=== PATIENT | male | born 1965 | race Caucasian/White ===

== ENCOUNTER 2016-10-10 16:01 | Emergency (ER) | payer SELFPAY ==
[~2016-10-10] VITALS: Ht 172.7 cm; Wt 99.8 kg
[2016-10-10] MEDS ORDERED: ASPIRIN 81 MG CHEW (CHILDREN'S ASA) PO ONE (16:30)
--- NOTE | 2016-10-10 16:53 | ED Chest Pain ---
General Chief Complaint: Chest Wall/Rib Pain Stated Complaint: CHEST/BACK/L SIDE PAIN Nursing Triage Note: Stated yesterday started having left shoulder, chest and back pain. Hurts worse to take a deep breath or move should. unable to lie flat. Denies soa, nausea, sweating Nursing Sepsis Screen: No Definite Risk Source: patient Exam Limitations: no limitations History of Present Illness Time seen by provider: 16:35 Initial Comments 1-2 day history of progressively worsening pain in his left chest especially on taking deep inspiration. He has a mild cough with no production. No fevers chills travel outside the [place], rash or recent illness. He had a heart catheter back in 2005 and was found to be normal. In the past he was told he had pleuritic chest pain. He has not been sedentary and has no pain in his calves or legs. Patient has mild anxiety but no shortness of breath without exertion. Allergies and Home Medications Allergies Coded Allergies: No Known Drug Allergies (Unverified , 10/10/16) Review of Systems Constitutional: No chills, No diaphoresis, No fever Respiratory: Cough (dry), Denies Orthopnea, SOA With Exertion, Denies SOA at Rest Cardiovascular: Chest Pain (right chest), Denies Edema Gastrointestinal: Denies Abdomen Distended, Denies Abdominal Pain Genitourinary: Denies Burning, Denies Discharge Musculoskeletal: No back pain, No joint pain Skin: No pruritus, No rash Psychiatric/Neurological: Denies Headache, Denies Numbness Past Ehqfbic-Xefmjz-Nhvrpw Hx Patient Social History Alcohol Use: Rarely Uses Recreational Drug Use: No Smoking Status: Never a Smoker 2nd Hand Smoke Exposure: No Recent Foreign Travel: No Contact w/Someone Who Travel: No Recent Infectious Disease Expo: No Recent Hopitalizations: No Immunizations Up To Date Tetanus Booster (TDap): More than 5yrs Surgeries HX Surgeries: No Respiratory Hx Respiratory Disorders: No Cardiovascular Hx Cardiac Disorders: Yes (Heart cath 2005) Neurological Hx Neurological Disorders: No Reproductive System Hx Reproductive Disorders: No Genitourinary Hx Genitourinary Disorders: No Gastrointestinal Hx Gastrointestinal Disorders: No Musculoskeletal Hx Musculoskeletal Disorders: No Endocrine Hx Endocrine Disorders: No HEENT HX ENT Disorders: No Psychosocial Hx Psychiatric Problems: No Integumentary HX Skin/Integumentary Disorder: No Blood Transfusions Hx Blood Disorders: No Physical Exam Vital Signs Vital Sign - Last 12Hours 10/10/16 16:09 Temp 98.8 Pulse 78 Resp 18 B/P (MAP) 137/84 Pulse Ox 98 Capillary Refill : Less Than 3 Seconds General Appearance: No Apparent Distress, WD/WN, Anxious HEENT: PERRL/EOMI, Pharynx Normal Neck: Full Range of Motion, Non Tender, Supple Respiratory: Chest Non Tender, Lungs Clear, Normal Breath Sounds, No Accessory Muscle Use, No Respiratory Distress, Inspiration (causes pain) Cardiovascular: Regular Rate, Rhythm, No Edema, No Gallop, No JVD, Normal Peripheral Pulses Gastrointestinal: Normal Bowel Sounds, No Organomegaly, No Pulsatile Mass, Non Tender, Soft Extremity: Normal Capillary Refill, Normal Inspection, Non Tender, No Calf Tenderness Neurologic/Psychiatric: Alert, Oriented x3, No Motor/Sensory Deficits Skin: Normal Color, Warm/Dry Progress/Results/Core Measures Results/Orders Lab Results Laboratory Tests Test 10/10/16 16:22 Range/Units White Blood Count 9.4 4.3-11.0 10^3/uL Red Blood Count 4.83 4.35-5.85 10^6/uL Hemoglobin 14.4 13.3-17.7 G/DL Hematocrit 42 40-54 % Mean Corpuscular Volume 87 80-99 FL Mean Corpuscular Hemoglobin 30 25-34 PG Mean Corpuscular Hemoglobin Concent 34 32-36 G/DL Red Cell Distribution Width 14.1 10.0-14.5 % Platelet Count 232 130-400 10^3/uL Mean Platelet Volume 10.9 H 7.4-10.4 FL Neutrophils (%) (Auto) 59 42-75 % Lymphocytes (%) (Auto) 31 12-44 % Monocytes (%) (Auto) 7 0-12 % Eosinophils (%) (Auto) 3 0-10 % Basophils (%) (Auto) 0 0-10 % Neutrophils # (Auto) 5.5 1.8-7.8 X 10^3 Lymphocytes # (Auto) 2.9 1.0-4.0 X 10^3 Monocytes # (Auto) 0.7 0.0-1.0 X 10^3 Eosinophils # (Auto) 0.3 0.0-0.3 10^3/uL Basophils # (Auto) 0.0 0.0-0.1 10^3/uL Prothrombin Time 12.8 12.2-14.7 SEC INR Comment 1.0 0.8-1.4 Activated Partial Thromboplast Time 26 24-35 SEC Sodium Level 142 135-145 MMOL/L Potassium Level 4.0 3.6-5.0 MMOL/L Chloride Level 106 98-107 MMOL/L Carbon Dioxide Level 26 21-32 MMOL/L Anion Gap 10 5-14 MMOL/L Blood Urea Nitrogen 12 7-18 MG/DL Creatinine 0.84 0.60-1.30 MG/DL Estimat Glomerular Filtration Rate > 60 BUN/Creatinine Ratio 14 Glucose Level 128 H 70-105 MG/DL Calcium Level 9.2 8.5-10.1 MG/DL Magnesium Level 2.2 1.8-2.4 MG/DL Total Bilirubin 0.5 0.1-1.0 MG/DL Aspartate Amino Transf (AST/SGOT) 24 5-34 U/L Alanine Aminotransferase (ALT/SGPT) 51 0-55 U/L Alkaline Phosphatase 64 40-136 U/L Myoglobin 32.7 10.0-92.0 NG/ML Troponin I < 0.30 <0.30 NG/ML Total Protein 7.1 6.4-8.2 G/DL Albumin 4.2 3.2-4.5 G/DL My Orders Orders - JARAD SAENZ Aspirin Chewable Tablet (Baby Aspirin Ch (10/10/16 16:30) Cbc With Automated Diff (10/10/16 16:53) Magnesium (10/10/16 16:53) Chest 1 View, Ap/Pa Only (10/10/16 16:53) Cardiac Profile 1 (10/10/16 16:53) Comprehensive Metabolic Panel (10/10/16 16:53) Myoglobin Serum (10/10/16 16:53) Protime With Inr (10/10/16 16:53) Partial Thromboplastin Time (10/10/16 16:53) O2 (10/10/16 16:53) Monitor-Rhythm Ecg Trace Only (10/10/16 16:53) Lipid Panel (10/11/16 06:00) Saline Lock/Iv-Start (10/10/16 16:53) Ct Angio Chest W (10/10/16 16:59) Iohexol Injection (Omnipaque 350 Mg/Ml 1 (10/10/16 17:15) Ns (Ivpb) (Sodium Chloride 0.9% Ivpb Bag (10/10/16 17:15) Medications Given in ED Current Medications Medications Dose Ordered Sig/Zhanna Route Start Time Stop Time Status Last Admin Dose Admin Aspirin 324 mg ONCE ONCE PO 10/10/16 16:30 10/10/16 16:32 DC 10/10/16 16:25 324 MG Iohexol 150 ml ONCE ONCE IV 10/10/16 17:15 10/10/16 17:16 DC 10/10/16 17:43 125 ML Sodium Chloride 100 ml ONCE ONCE IV 10/10/16 17:15 10/10/16 17:16 DC 10/10/16 17:43 80 ML Vital Signs/I&O Vital Sign - Last 12Hours 10/10/16 16:09 Temp 98.8 Pulse 78 Resp 18 B/P (MAP) 137/84 Pulse Ox 98 Blood Pressure Mean: 101 Progress Note : Time: 19:06 Progress Note Patient present to the ER with pleuritic sounding chest pain nontender chest wall. He is having mild shortness of breath although his sats of been okay he does not smoke or sure a lot of other risk factors. He reports he does have GERD and acid reflux. He states he has been seen several times recently for this pain and is very anxious and worried about it. He is worried he may have a clot in his lungs. Although as well scores low the obtain CTA make sure that he did not have a triple A given his description of the pain early on as being tearing. Diagnostic Imaging Diagonstic Imaging: Xray Plain Films/CT/US/NM/MRI: chest Comments VIA [facility]. [place], [place] NAME: GABRIELA ARMENTA [facility] REC#: [id number] PT STATUS: REG ER : 1965 PHYSICIAN: JARAD SAENZ MD ADMIT DATE: 10/10/16/ER Draft Date of Exam:10/10/16 CHEST 1 VIEW, AP/PA ONLY INDICATION: Chest pain. COMPARISON: Comparison made with prior examination from 12/10/2006. FINDINGS: The heart size, mediastinal configuration, and pulmonary vascularity are within normal limits. There is no pleural effusion, pneumothorax, or pneumonia. The osseous structures are unremarkable. IMPRESSION: No acute cardiopulmonary abnormality. Dictated on workstation # [id number] Dict: 10/10/16 1806 Trans: 10/10/16 180 [id number] Interpreted by: LILLIE ADAMSON Electronically signed by: Reviewed: Reviewed by Me Departure Impression Impression: Primary Impression: Pleuritic chest pain Disposition: 01 HOME, SELF-CARE Condition: Stable Departure-Patient Inst. Decision time for Depature: 19:08 Referrals: CHADWICK CHICAS DO (PCP/Family) Primary Care Physician Patient Instructions: Pleuritic Chest Pain (DC) Add. Discharge Instructions: Your chest pain is pleuritic in nature meaning it is related to the linings of your lungs. You should have this worked up outpatient by your primary care physician. If you continue to have pain you may consider using NSAIDs such as ibuprofen or Motrin or Aleve. Plan to see your primary care physician in one to 2 weeks. If you have new or worsening symptoms return to the ER. All discharge instructions reviewed with patient and/or family. Voiced understanding. Copy Copies To 1: CHADWICK CHICAS TITUS J October 10, 2016 16:53
[2016-10-10 16:59] LABS: BASOPHILS % (AUTO) 0 % (0-10); EOSINOPHILS # (AUTO) 0.3 10^3/uL (0.0-0.3); EOSINOPHILS % (AUTO) 3 % (0-10); LYMPHOCYTES # (AUTO) 2.9 X 10^3 (1.0-4.0); LYMPHOCYTES % (AUTO) 31 % (12-44); MEAN CORPUSCULAR HEMOGLOBIN 30 PG (25-34); MEAN CORPUSCULAR HGB CONC 34 G/DL (32-36); MEAN CORPUSCULAR VOLUME 87 FL (80-99); MEAN PLATELET VOLUME 10.9 FL (7.4-10.4); MONOCYTES # (AUTO) 0.7 X 10^3 (0.0-1.0); MONOCYTES % (AUTO) 7 % (0-12); NEUTROPHILS # (AUTO) 5.5 X 10^3 (1.8-7.8); NEUTROPHILS % (AUTO) 59 % (42-75); PLATELET COUNT 232 10^3/uL (130-400); RED BLOOD COUNT 4.83 10^6/uL (4.35-5.85); RED CELL DISTRIBUTION WIDTH 14.1 % (10.0-14.5); WHITE BLOOD COUNT 9.4 10^3/uL (4.3-11.0)
[2016-10-10] MEDS ORDERED: IOHEXOL 350 MG/ML 150 ML (OMNIPAQUE 350) VIAL IV ONE (17:15)
[2016-10-10] MEDS ORDERED: NS 100 ML (IVPB) BAG IV ONE (17:15)
[2016-10-10 17:19] LABS: ALANINE AMINOTRANSFERASE 51 U/L (0-55); ALBUMIN 4.2 G/DL (3.2-4.5); ANION GAP 10 MMOL/L (5-14); ASPARTATE AMINO TRANSFERASE 24 U/L (5-34); BILIRUBIN,TOTAL 0.5 MG/DL (0.1-1.0); BLOOD UREA NITROGEN 12 MG/DL (7-18); BUN/CREATININE RATIO 14; CALCIUM 9.2 MG/DL (8.5-10.1); CARBON DIOXIDE 26 MMOL/L (21-32); CHLORIDE 106 MMOL/L (98-107); CREATININE SERUM 0.84 MG/DL (0.60-1.30); GFR ESTIMATED > 60; GLUCOSE 128 MG/DL (70-105); MAGNESIUM 2.2 MG/DL (1.8-2.4); SODIUM 142 MMOL/L (135-145); TOTAL PROTEIN 7.1 G/DL (6.4-8.2)
[2016-10-10 17:25] LABS: MYOGLOBIN SERUM 32.7 NG/ML (10.0-92.0)
[2016-10-10 17:29] LABS: PROTHROMBIN TIME PATIENT 12.8 SEC (12.2-14.7)
--- NOTE | 2016-10-10 18:09 | Diagnostic Imaging Report ---
INDICATION: Chest pain. COMPARISON: Comparison made with prior examination from 12/10/2006. FINDINGS: The heart size, mediastinal configuration, and pulmonary vascularity are within normal limits. There is no pleural effusion, pneumothorax, or pneumonia. The osseous structures are unremarkable. IMPRESSION: No acute cardiopulmonary abnormality. Dictated by: Dictated on workstation # [id number]
--- NOTE | 2016-10-10 18:28 | Diagnostic Imaging Report ---
PROCEDURE: CT angiography of the chest with contrast. TECHNIQUE: Multiple contiguous axial images were obtained through the chest after uneventful bolus administration of intravenous contrast. Reconstructed CTA MIP acquisitions were also performed. INDICATION: Left chest pain. FINDINGS: There is a tiny low-density lesion in the left lobe of the thyroid. There is a small hiatal hernia. Incidental note is made of a bovine branching pattern of the aortic arch. The heart size is normal. The thoracic aorta is normal in caliber and without evidence of dissection. There are no filling defects seen within the pulmonary arteries to suggest pulmonary embolism. There are no discrete pulmonary nodules, masses or infiltrates. There is minimal linear scarring in the right lung base. There is no pleural or pericardial fluid. There is no pneumothorax. There is no pathologically enlarged adenopathy in the chest. The visualized intra-abdominal structures are unremarkable. IMPRESSION: 1. No evidence of aortic dissection or pulmonary embolism. 2. Small hiatal hernia. 3. Minimal linear scarring in the right lung base. 4. No other acute abnormality in the chest. Dictated by: Dictated on workstation # [id number]
[2016-10-10 19:32] VITALS: BP 139/98
== END 2016-10-10 19:28 | disposition home or self-care (01) ==
LOC: EDUNIT# 16:01 → ER 16:04
DX: R07.1 Chest pain on breathing (principal); K21.9 Gastro-esophageal reflux disease without esophagitis
CPT/HCPCS: 36415; 71010; 71275; 80053; 83735; 83874; 84484; 85027; 85610; 85730

== ENCOUNTER 2017-05-31 13:00 | Emergency (ER) | payer SELFPAY ==
[~2017-05-31] VITALS: Ht 175.3 cm; Wt 113.4 kg
--- NOTE | 2017-05-31 13:45 | ED Upper Extremity ---
General Chief Complaint: Upper Extremity Stated Complaint: L ELBOW PAIN Nursing Triage Note: PT REPORTS L ELBOW SWELLING AND PAIN. HE DENIES ANY INJURY. Nursing Sepsis Screen: No Definite Risk Source: patient History of Present Illness Time seen by provider: 13:30 Initial Comments C/O LEFT ELBOW SWELLING AND MILD PAIN FOR A FEW WEEKS NO KNOWN INJURY PT STATES IT GOT BETTER, THEN TODAY STARTED SWELLING AGAIN AND STARTED HURTING A LITTLE AGAIN NO PARESTHESIAS OR MOTOR DEFICITS NO HISTORY OF SIMILAR PT IS RIGHT HANDED PCP: DR. CHICAS Allergies and Home Medications Allergies Coded Allergies: No Known Drug Allergies (Unverified , 10/10/16) Constitutional: no symptoms reported Musculoskeletal: see HPI Skin: no symptoms reported Psychiatric/Neurological: No Symptoms Reported Past Unmdjhv-Goguuj-Tqhqhn Hx Patient Social History Alcohol Use: Rarely Uses Recreational Drug Use: No Smoking Status: Never a Smoker 2nd Hand Smoke Exposure: No Recent Foreign Travel: No Contact w/Someone Who Travel: No Recent Infectious Disease Expo: No Recent Hopitalizations: No Immunizations Up To Date Tetanus Booster (TDap): More than 5yrs Seasonal Allergies Seasonal Allergies: No Surgeries History of Surgeries: Yes (CARDIAC CATH 2005--NO INTERVENTION) Respiratory History of Respiratory Disorde: No Cardiovascular History of Cardiac Disorders: Yes (CARDIAC CATH 2005-NO INTERVENTION) Neurological History of Neurological Disord: No Reproductive System Hx Reproductive Disorders: No Gastrointestinal History of Gastrointestinal Di: No Musculoskeletal History of Musculoskeletal Dis: No Endocrine History of Endocrine Disorders: No HEENT History of HEENT Disorders: No Cancer History of Cancer: No Psychosocial History of Psychiatric Problem: No Integumentary History of Skin or Integumenta: No Blood Transfusions History of Blood Disorders: No Physical Exam Vital Signs Vital Sign - Last 12Hours 05/31/17 13:07 Temp 97.3 Pulse 70 Resp 16 B/P (MAP) 138/74 (95) Pulse Ox 98 O2 Delivery Room Air Capillary Refill : Less Than 3 Seconds General Appearance: WD/WN, no apparent distress Shoulder: normal inspection Elbow/Forearm: normal ROM, Left (ELBOW--+ EFFUSION OVER OLECRANON. NO TENDERNESS. NO WARMTH OR ERYTHEMA. NO WOUNDS OR EXTERNAL EVIDENCE OF TRAUMA. 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 as tested, no motor/sensory deficits, alert, normal mood/affect, oriented x 3 Skin: normal color, warm/dry, No rash Additional Procedures : Progress LEFT ELBOW CLEANSED WITH CHLORHEXIDINE INJECTED WITH 1% LIDOCAINE PLAIN ASPIRATED 20 ML BLOODY FLUID FROM AREA PT TOLERATED WELL NO COMPLICATIONS Progress/Results/Core Measures Results/Orders Lab Results Laboratory Tests Test 05/31/17 14:40 Range/Units Body Fluid Source SYNOVIAL Body Fluid Color RED Body Fluid Appearance MKD BLDY Body Fluid WBC 250 /uL Body Fluid RBC 53864 /uL Body Fluid Polynuclear WBCs 4 % Body Fluid Mononuclear WBCs 10 % Body Fluid Lymphocytes 86 % Body Fluid Other Cells 0 % Body Fluid Crystals NOT SEEN My Orders Orders - LAMAR BENNETT DO Elbow, Left, 3 Views (05/31/17 13:34) Lidocaine 1% (Xylocaine 1%) (05/31/17 14:23) Body Fluid Cell Count (05/31/17 14:38) Crystals,Body Fluid (05/31/17 14:38) Body Fluid Culture (05/31/17 14:38) Medications Given in ED Current Medications Medications Dose Ordered Sig/Zhanna Route Start Time Stop Time Status Last Admin Dose Admin Lidocaine HCl 50 ml STK-MED ONCE .ROUTE 05/31/17 14:23 05/31/17 14:25 DC 05/31/17 14:30 50 ML Vital Signs/I&O Vital Sign - Last 12Hours 05/31/17 05/31/17 13:07 14:57 Temp 97.3 97.3 Pulse 70 70 Resp 16 16 B/P (MAP) 138/74 (95) Pulse Ox 98 98 O2 Delivery Room Air Blood Pressure Mean: 95 Diagnostic Imaging Comments XRAYS LEFT ELBOW--EFFUSION/ BURSITIS--PER RADIOLOGIST REPORT @ 1438 Departure Impression Impression: Primary Impression: Olecranon bursitis, left elbow Disposition: 01 HOME, SELF-CARE Condition: Stable Departure-Patient Inst. Referrals: CHADWICK CHICAS DO (PCP/Family) Primary Care Physician GEOVANY CA MD Patient Instructions: Olecranon Bursitis (DC) Add. Discharge Instructions: FOLLOW UP WITH DR. CA THIS WEEK FOR FURTHER CARE TYLENOL AND MOTRIN NEEDED FOR PAIN All discharge instructions reviewed with patient and/or family. Voiced understanding. LAMAR BENNETT DO May 31, 2017 13:45
[2017-05-31] MEDS ORDERED: LIDOCAINE 1% INJ 50 ML (XYLOCAINE) VIAL ONE (14:23)
--- NOTE | 2017-05-31 14:25 | Diagnostic Imaging Report ---
Two views of the left elbow. INDICATION: Left elbow pain. FINDINGS: No fracture, dislocation or radiopaque foreign body is seen. There is elevation of the elbow fat pads suggestive of an effusion. There is a soft tissue swelling along the olecranon bursa area. The ossification at the triceps insertion is seen. IMPRESSION: There is suggestion of an elbow effusion and distention of the olecranon bursa suggestive of bursitis. Dictated by: Dictated on workstation # [id number]
[2017-05-31 14:57] VITALS: BP 138/74
== END 2017-05-31 15:00 | disposition home or self-care (01) ==
LOC: EDUNIT# 13:00 → ER 13:02
DX: M70.22 Olecranon bursitis, left elbow (principal)
CPT/HCPCS: 73080; 87070; 87205; 89051; 89060

== ENCOUNTER 2020-11-17 09:34 | Outpatient (CLI) | payer SELFPAY ==
[~2020-11-17] VITALS: Ht 175.3 cm; Wt 123.6 kg
== END 2020-11-17 14:44 | disposition home or self-care (01) ==
LOC: PREOP 09:34
PROVIDERS: ATTEND Surgery
DX: Z01.818 Encounter for other preprocedural examination (principal)

== ENCOUNTER 2020-11-19 12:48 | Day surgery (SDC) | payer SELFPAY ==
[2020-11-19] VITALS (20 sets, daily range): BP systolic 108–147; BP diastolic 51–86
[~2020-11-19] VITALS: Ht 175.6 cm; Wt 123.6 kg
--- NOTE | 2020-11-19 13:04 | Conscious Sedation/ASA ---
Conscious Sedation Pre-Proced Time 13:00 ASA Score 2 For ASA 3 and 4: Consider anesthesia and medical clearance. Also, for patients with a history of failed moderate sedation consider anesthesia. Airway Lungs Heart ASA score ASA 1: a normal healthy patient ASA 2: a patient with a mild systemic disease (mid diabetes, controlled hypertension, obesity ASA 3: a patient with a severe systemic disease that limits activity (angina, COPD, prior Myocardial infarction) ASA 4: a patient with an incapacitating disease that is a constant threat to life (CHF, renal failure) ASA 5: a moribund patient not expected to survive 24 hrs. (ruptured aneurysm) ASA 6: a declared brain- patient whose organs are being harvested. For emergent operations, add the letter E after the classification Mallampati Classification Grade 2 Sedation Plan Analgesia, Amnesia, Plan communicated to team members, Discussed options with patient/fam, Discussed risks with patient/fam The patient is an appropriate candidate to undergo the planned procedure, sedation, and anesthesia. The patient immediately re-assessed prior to indication. OFELIA CACERES MD Nov 19, 2020 13:04
--- NOTE | 2020-11-19 13:05 | Progress Note-Pre Operative ---
Pre-Operative Progress Note H&P Reviewed The H&P was reviewed, patient examined and no changes noted. Date Seen by Provider: Nov 19, 2020 Time Seen by Provider: 13:00 Date H&P Reviewed: Nov 19, 2020 Time H&P Reviewed: 13:00 Pre-Operative Diagnosis: rectal bleeding OFELIA CACERES MD Nov 19, 2020 13:05
--- NOTE | 2020-11-19 13:06 | Discharge Inst-Surgical ---
D/C Lap Instructions-NICKI Follow Up Activity as tolerated High Fiber Diet 25g or more per day Avoid Alcohol, Caffeine, Spicy [place] and Acid foods. Drink 64 fluid oz or more of fluids per day. Symptoms to Report: Fever over 101 degree F, Nausea/Vomiting If any problems/questions: Contact your physician or go to Emergency Room OFELIA CACERES MD Nov 19, 2020 13:06
[2020-11-19] MEDS ORDERED: NS IV 500 ML 500 ML ONE (13:14)
[2020-11-19] MEDS ORDERED: ONDANSETRON 4 MG/2 ML (SDV) Z0FRAN IVP PRN (13:15)
[2020-11-19] MEDS ORDERED: morphine INJ 10 MG/ML 1ML (SYR OR VIAL) IVP PRN ×2 (13:15)
[2020-11-19] MEDS ORDERED: ACETAMINOPHEN 325 MG TABLET PO PRN (13:15)
[2020-11-19] MEDS ORDERED: MIDAZOLAM 5 MG/5 ML (VERSED) VIAL IV ONE (13:15)
[2020-11-19] MEDS ORDERED: fentaNYL INJ 100 MCG/2 ML AMP IVP ONE (13:15)
[2020-11-19] MEDS ORDERED: LIDOCAINE JELLY 2% 6 ML SYRINGE MM PRN (13:15)
[2020-11-19] MEDS: NS IV 500 ML 500 ML IV PRN ×2 (13:25→13:27)
[2020-11-19] MEDS ORDERED: MIDAZOLAM 5 MG/5 ML (VERSED) VIAL ONE (14:08)
[2020-11-19] MEDS ORDERED: fentaNYL INJ 100 MCG/2 ML AMP ONE (14:09)
[2020-11-19] MEDS ORDERED: ATROPINE INJ 0.4 MG/ML SDV ONE (14:59)
[2020-11-19] MEDS ORDERED: ATROPINE INJ 0.4 MG/ML SDV IV ONE (15:15)
--- NOTE | 2020-11-19 15:32 | Progress Note-Post Operative ---
Post-Operative Progess Note Surgeon (s)/Dry Cleaner Presser (s) Surgeon OFELIA CACERES MD Dry Cleaner Presser: none Pre-Operative Diagnosis rectal bleeding Post-Operative Diagnosis laege sessile polyp distal rectum, 5mm pedunculated olyp simod and descending. Procedure & Operative Findings Date of Procedure 11/19/20 Procedure Performed/Findings colonoscopy with bx, snare polypectomy x2, submucosal injection. Anesthesia Type cs Estimated Blood Loss Estimated blood loss (mL): minimal Specimens/Packing Specimens Removed rectal mass, sigmoid and descending colon polyp. OFELIA CACERES MD Nov 19, 2020 15:32
[2020-11-19] MEDS ORDERED: fentaNYL INJ 100 MCG/2 ML AMP IVP PRN (16:00)
[2020-11-19] MEDS ORDERED: MIDAZOLAM 5 MG/5 ML (VERSED) VIAL IVP PRN (16:00)
--- NOTE | 2020-11-19 20:39 | OPERATIVE REPORT ---
DATE OF SERVICE: 11/19/2020 ATTENDING PRIMARY CARE PHYSICIAN: Dr. Matt Mcqueen. PREOPERATIVE DIAGNOSIS: Rectal bleeding. POSTOPERATIVE DIAGNOSES: Large sessile polyp of the distal rectum, pedunculated polyp of the sigmoid colon and descending colon. PROCEDURE: Colonoscopy with biopsy, snare polypectomy x2, submucosal injection. SURGEON: Ofelia Caceres MD ANESTHESIA: Conscious sedation. ESTIMATED BLOOD LOSS: Minimal. FINDINGS: Large sessile polyp of the distal rectum, pedunculated polyp of the sigmoid colon and descending colon. DISPOSITION: The patient tolerated the procedure well. INDICATIONS: The patient is a 55-year-old male who was seen in the office for rectal bleeding. He states that the bleeding was significant and he was seen in the Emergency Department. He has not had a colonoscopy up to this point in his life. He does not report any major issues with diarrhea nor constipation as well as no red blood per rectum nor any dark tarry stools. He also does not report any recent inadvertent weight loss. He does not report any family history of colon cancer. DESCRIPTION OF PROCEDURE: The patient was brought to the endoscopy suite, laid in the left lateral decubitus position. After adequate IV pain and sedative medications and conscious sedation anesthesia, digital rectal examination was performed. There was a palpable mass of the distal rectum, which was flat, sessile and at least 2 cm in width. Prostate gland was palpable and appeared normal. The endoscope was then intubated to the anus where this large sessile polyp was identified. Multiple biopsies were taken with forceps and electrocautery with visualization of good hemostasis. We also proceeded with submucosal injection proximal and distal to the polyp. The endoscope was then advanced through the valves of Zepeda in the rectum. At the sigmoid colon, a pedunculated polyp approximately 5 mm in size was identified. This was excised at its base using snare and electrocautery and sent to pathology. The endoscope was then advanced to the descending colon where a similar sized polyp, which was pedunculated was identified and removed. The endoscope was then advanced through the remainder of the transverse, ascending colon to the cecum, which were normal. The endoscope was then slowly withdrawn while taking a second look and suctioning of residual air with no additional findings. The patient tolerated the procedure well. We will await the biopsy results; however, the distal rectal lesion is worrisome for harboring a malignancy. If this is the case, we will refer him to oncology for potential chemoradiation. Due to the location of the lesion for definitive surgical resection, he would need an abdominoperineal resection and for this, we would refer him to a colorectal specialist. Job ID: [id number] DocumentID: [id number] Dictated Date: 11/19/2020 15:22:27 Inlayer Date: 11/19/2020 20:38:23 Dictated By: OFELIA CACERES MD
== END 2020-11-19 16:15 | disposition home or self-care (01) ==
LOC: ENDO 12:48
PROVIDERS: ATTEND Surgery
DX: C18.7 Malignant neoplasm of sigmoid colon (principal); D12.8 Benign neoplasm of rectum
CPT/HCPCS: 88305; 88341; 88342

== ENCOUNTER → 2020-12-02 | Outpatient (CLI) | payer SELFPAY ==
--- NOTE | 2020-12-02 18:57 | Diagnostic Imaging Report ---
INDICATION: Malignant neoplasm of the sigmoid colon, initial staging. TECHNIQUE: Serum blood glucose level at the time of injection is 99 mg/dL. Patient was administered 11.9 mCi F-18 FDG intravenously in the left antecubital location and PET imaging was performed from the top of the skull to mid thighs. Noncontrast CT was also performed for attenuation correction and anatomic correlation. COMPARISON: No prior studies are available for comparison. FINDINGS: There is symmetric activity throughout the brain. Soft tissues of the neck are unremarkable. There is a lymph node which shows some mild uptake in the right axilla with SUV max of 4.1 cm, indeterminate. No definite mediastinal or hilar hypermetabolism is seen. No pulmonary parenchymal hypermetabolism is identified. There is physiologic activity in the GI and tracts. There does appear to be an intensely hypermetabolic mass near the rectosigmoid junction with an SUV max of 27. This most likely corresponds to patient's known sigmoid colon malignancy. No definite hypermetabolic pelvic lymph nodes are identified. No other abnormalities are seen. IMPRESSION: Hypermetabolic mass at the rectosigmoid junction, corresponding to patient's known malignancy. No other suspicious metabolic foci are seen apart from a mildly hypermetabolic lymph node in the right axilla, indeterminate. Dictated by: Dictated on workstation # [id number]
== END ==
LOC: RAD 10:30
PROVIDERS: ATTEND Internal Medicine Hematology & Oncology
DX: C18.7 Malignant neoplasm of sigmoid colon (principal); R59.0 Localized enlarged lymph nodes
CPT/HCPCS: 78815; A9552

== ENCOUNTER → 2020-12-10 | Outpatient (CLI) | payer SELFPAY ==
[~2020-12-10] MED LIST: GADOBUTROL 15 MMOL/15 ML (GADAVIST) VIAL IV ONE
--- NOTE | 2020-12-10 13:01 | Diagnostic Imaging Report ---
EXAMINATION: MRI pelvis with and without contrast. TECHNIQUE: Multiplanar, multisequence MRI of the pelvis was performed with and without contrast according to rectal staging protocol. HISTORY: Rectal tumor. FINDINGS: Overall image quality: Adequate Tumor location and morphology: Tumor location: Low rectum (0-5 cm) Distance of inferior border of tumor to anal verge: 4.5 cm Distance of inferior border of tumor to anorectal junction: 2.5 cm Craniocaudal length: 5.5 cm Circumferential location: 12:00 to 7:00 Morphology: Polypoid Mucinous: no T-category: T1-2 (Tumor confined to the submucosa or muscularis propria) Structures invaded: None Involvement of sphincter complex: no N-category: N1b (2-3 abnormal lymph nodes) Suspicious mesorectal lymph nodes and/or tumor deposits: yes Number of suspicious lymph nodes: Three Distance from tumor deposit to CRM: 5 mm Extramesorectal fascia lymph nodes: no Other findings: Bowel is normal in caliber. Bladder is normal. Prostate gland is mildly enlarged. No osseus lesions are seen. IMPRESSION: 1. Low rectal tumor stage T1/T2N1b. Dictated by: Dictated on workstation # [id number]
== END ==
LOC: RAD 10:15
PROVIDERS: ATTEND Internal Medicine Hematology & Oncology
DX: C20 Malignant neoplasm of rectum (principal)
CPT/HCPCS: 72197

== ENCOUNTER 2020-12-15 08:31 | Outpatient (RCR) | payer SELFPAY ==
[2020-11-28 14:06] LABS: BASOPHILS % (AUTO) 0 % (0-10); EOSINOPHILS # (AUTO) 0.4 10^3/uL (0.0-0.3); EOSINOPHILS % (AUTO) 4 % (0-10); HEMATOCRIT 44 % (40-54); HEMOGLOBIN 14.8 g/dL (13.3-17.7); LYMPHOCYTES # (AUTO) 2.6 10^3/uL (1.0-4.0); LYMPHOCYTES % (AUTO) 26 % (12-44); MEAN CORPUSCULAR HEMOGLOBIN 31 pg (25-34); MEAN CORPUSCULAR HGB CONC 34 g/dL (32-36); MEAN CORPUSCULAR VOLUME 90 fL (80-99); MEAN PLATELET VOLUME 10.1 fL (9.0-12.2); MONOCYTES # (AUTO) 0.7 10^3/uL (0.0-1.0); MONOCYTES % (AUTO) 7 % (0-12); NEUTROPHILS # (AUTO) 6.2 10^3/uL (1.8-7.8); NEUTROPHILS % (AUTO) 63 % (42-75); PLATELET COUNT 244 10^3/uL (130-400); WHITE BLOOD COUNT 9.9 10^3/uL (4.3-11.0)
[2020-11-28 14:27] LABS: ALANINE AMINOTRANSFERASE 60 U/L (0-55); ALBUMIN 4.1 GM/DL (3.2-4.5); ALKALINE PHOSPHATASE 62 U/L (40-136); BILIRUBIN,TOTAL 0.5 MG/DL (0.1-1.0); BUN/CREATININE RATIO 18; CALCIUM 9.2 MG/DL (8.5-10.1); CARBON DIOXIDE 28 MMOL/L (21-32); CHLORIDE 107 MMOL/L (98-107); CREATININE SERUM 0.84 MG/DL (0.60-1.30); GFR ESTIMATED > 60; GLUCOSE 122 MG/DL (70-105); POTASSIUM 4.3 MMOL/L (3.6-5.0); SODIUM 142 MMOL/L (135-145); TOTAL PROTEIN 7.1 GM/DL (6.4-8.2)
== END 2020-12-19 13:52 | disposition home or self-care (01) ==
LOC: ONC 08:31
PROVIDERS: ATTEND Internal Medicine Hematology & Oncology
DX: C18.7 Malignant neoplasm of sigmoid colon (principal)
CPT/HCPCS: 80053; 82378; 85025; G0463; 77290; 77300; 77301; 77334; 77338; 77470; 99204; 99213; 99214

== ENCOUNTER 2021-02-24 22:50 | Emergency (ER) | payer OTHER ==
[~2021-02-24] VITALS: Ht 175 cm; Wt 120.7 kg
[2021-02-24 23:10] LABS: BASOPHILS % (AUTO) 1 % (0-10); EOSINOPHILS # (AUTO) 0.4 10^3/uL (0.0-0.3); EOSINOPHILS % (AUTO) 8 % (0-10); HEMATOCRIT 36 % (40-54); HEMOGLOBIN 12.3 g/dL (13.3-17.7); LYMPHOCYTES # (AUTO) 0.6 10^3/uL (1.0-4.0); LYMPHOCYTES % (AUTO) 11 % (12-44); MEAN CORPUSCULAR HEMOGLOBIN 32 pg (25-34); MEAN CORPUSCULAR HGB CONC 34 g/dL (32-36); MEAN CORPUSCULAR VOLUME 95 fL (80-99); MEAN PLATELET VOLUME 9.3 fL (9.0-12.2); MONOCYTES # (AUTO) 0.6 10^3/uL (0.0-1.0); MONOCYTES % (AUTO) 11 % (0-12); NEUTROPHILS # (AUTO) 3.6 10^3/uL (1.8-7.8); NEUTROPHILS % (AUTO) 68 % (42-75); PLATELET COUNT 220 10^3/uL (130-400); WHITE BLOOD COUNT 5.3 10^3/uL (4.3-11.0)
--- NOTE | 2021-02-24 23:17 | ED GI ---
General Chief Complaint: Rect Problems Stated Complaint: BLOOD IN STOOL Source of Information: Patient Exam Limitations: No Limitations (BARBI CARDENAS STUDENT) History of Present Illness Date Seen by Provider: Feb 24, 2021 Time Seen by Provider: 23:00 Initial Comments Jonathan is a 55 yo M who presents to the ED with c/o hematochezia. He had a normal day and this evening he went to the restroom and noticed blood on the toilet paper. When he looked, the whole stool was filled with bright red blood. Pt has 1 prior event where he had blood in his stool. 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 Pt is seeing Dr. Hamilton weekly. Pt has undergone 6 weeks of chemotherapy and radiation, he is currently on a 6 week break and will go to [place], [place] in March to have an MRI and then surgery to remove the mass. Positive for hematochezia. Denies any current bleeding. Denies nausea, vomiting, diarrhea, constipation, melena and abdominal pain. Timing/Duration: 1-3 Hours Severity/Quality: Mild Location: Unknown (rectal) Radiation: No Radiation Activities at Onset: Rest Modifying Factors: Improves With Other (no modifying factors ) Associated Symptoms: Denies Symptoms (BARBI CARDENAS) Allergies and Home Medications Allergies Coded Allergies: No Known Drug Allergies (Unverified , 10/10/16) Patient Home Medication List Home Medication List Reviewed: Yes (REGINA CHAMBERS MD) No Active Prescriptions or Reported Meds Review of Systems Review of Systems Constitutional: No chills, No diaphoresis, No fever, No malaise, No weakness EENTM: No Blurred Vision, No Double Vision Respiratory: Denies Cough, Denies Shortness of Air Cardiovascular: Denies Chest Pain, Denies Lightheadedness, Denies Palpitations Gastrointestinal: Denies Abdominal Pain, Denies Constipated, Denies Diarrhea, Denies Nausea, Denies Vomiting; Other (Hematochezia) Genitourinary: No Symptoms Reported Musculoskeletal: no symptoms reported Skin: no symptoms reported Hematologic/Lymphatic: No Symptoms Reported (BARBI CARDENAS STUDENT) Past Szlsork-Cecjid-Jgpswy Hx Patient Social History Tobacco Use?: No Substance use?: No (BARBI CARDENAS) Immunizations Up To Date Tetanus Booster (TDap): More than 5yrs (BARBI CARDENAS MED STUDENT) Seasonal Allergies Seasonal Allergies: No (BARBI CARDENAS STUDENT) Past Medical History Surgeries: No Respiratory: No Cardiac: No Neurological: No Reproductive Disorders: No Genitourinary: No Gastrointestinal: No Musculoskeletal: No Endocrine: No HEENT: No 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 Hamilton in [place], [place] 02/24/21 Psychosocial: No Integumentary: No Blood Disorders: No (BARBI CARDENAS STUDENT) Family Medical History No Pertinent Family Hx (BARBI CARDENAS STUDENT) Physical Exam Vital Signs Vital Signs - First Documented 02/24/21 22:59 Temp 36.2 Pulse 78 Resp 20 B/P (MAP) 147/89 (108) Pulse Ox 95 O2 Delivery Room Air (REGINA CHAMBERS MD) Vital Signs Capillary Refill : (BARBI CARDENAS MED STUDENT) Height/Weight/BMI Height: 5'9.00" Weight: 250lbs. oz. 113.994063gf; 40.08 BMI Method:Stated General Appearance: no apparent distress, obese Neck: full range of motion; No lymphadenopathy (R), No lymphadenopathy (L) Respiratory: chest non-tender, lungs clear, normal breath sounds, no respi ratory distress Cardiovascular: regular rate, rhythm, no murmur Gastrointestinal: normal bowel sounds, non tender, soft; No guarding, No rebound Neurologic/Psychiatric: alert, normal mood/affect, oriented x 3 Skin: normal color, warm/dry ( ) (BARBI CARDENAS MED STUDENT) Progress/Results/Core Measures Results/Orders Lab Results Laboratory Tests Test 02/24/21 23:00 Range/Units White Blood Count 5.3 4.3-11.0 10^3/uL Red Blood Count 3.83 L 4.30-5.52 10^6/uL Hemoglobin 12.3 L 13.3-17.7 g/dL Hematocrit 36 L 40-54 % Mean Corpuscular Volume 95 80-99 fL Mean Corpuscular Hemoglobin 32 25-34 pg Mean Corpuscular Hemoglobin Concent 34 32-36 g/dL Red Cell Distribution Width 17.3 H 10.0-14.5 % Platelet Count 220 130-400 10^3/uL Mean Platelet Volume 9.3 9.0-12.2 fL Immature Granulocyte % (Auto) 1 % Neutrophils (%) (Auto) 68 42-75 % Lymphocytes (%) (Auto) 11 L 12-44 % Monocytes (%) (Auto) 11 0-12 % Eosinophils (%) (Auto) 8 0-10 % Basophils (%) (Auto) 1 0-10 % Neutrophils # (Auto) 3.6 1.8-7.8 10^3/uL Lymphocytes # (Auto) 0.6 L 1.0-4.0 10^3/uL Monocytes # (Auto) 0.6 0.0-1.0 10^3/uL Eosinophils # (Auto) 0.4 H 0.0-0.3 10^3/uL Basophils # (Auto) 0.0 0.0-0.1 10^3/uL Immature Granulocyte # (Auto) 0.0 0.0-0.1 10^3/uL Sodium Level 140 135-145 MMOL/L Potassium Level 3.9 3.6-5.0 MMOL/L Chloride Level 107 98-107 MMOL/L Carbon Dioxide Level 23 21-32 MMOL/L Anion Gap 10 5-14 MMOL/L Blood Urea Nitrogen 11 7-18 MG/DL Creatinine 0.79 0.60-1.30 MG/DL Estimat Glomerular Filtration Rate 102 BUN/Creatinine Ratio 14 Glucose Level 111 H 70-105 MG/DL Calcium Level 9.0 8.5-10.1 MG/DL Corrected Calcium 9.1 8.5-10.1 MG/DL Total Bilirubin 0.8 0.1-1.0 MG/DL Aspartate Amino Transf (AST/SGOT) 27 5-34 U/L Alanine Aminotransferase (ALT/SGPT) 49 0-55 U/L Alkaline Phosphatase 60 40-136 U/L Total Protein 6.6 6.4-8.2 GM/DL Albumin 3.9 3.2-4.5 GM/DL (REGINA CHAMBERS MD) My Orders Orders - REGINA CHAMBERS MD Ed Iv/Invasive Line Start (02/24/21 23:00) Cbc With Automated Diff (02/24/21 23:00) Comprehensive Metabolic Panel (02/24/21 23:00) (REGINA CHAMBERS MD) Vital Signs/I&O 02/24/21 02/25/21 22:59 01:52 Temp 36.2 36.0 Pulse 78 62 Resp 20 18 B/P (MAP) 147/89 (108) 134/82 Pulse Ox 95 97 O2 Delivery Room Air Room Air (REGINA CHAMBERS MD) Departure Impression Primary Impression: Hematochezia Additional Impression: Rectal mass Disposition: HOME, SELF-CARE Condition: Improved Departure-Patient Inst. Decision time for Depature: 01:36 (REGINA CHAMBERS MD) Referrals: CHADWICK CHICAS DO (PCP/Family) Primary Care Physician Patient Instructions: Bloody Stools, Adult ED Add. Discharge Instructions: Observe a clear liquid diet for the next 24 hours to allow your bowels to rest. Expect some amount of blood in your stools for the next couple of the bowel movements as blood clears the colon. Return to the emergency room if you have further severe bleeding or if you develop secondary signs of anemia such as racing heart, shortness of breath, lightheadedness, weakness, etc. Call the Cancer Center in the morning for further instructions. You may call the ER with any other questions or concerns while the cancer center is not open. Avoid medications that can increase bleeding such as aspirin, ibuprofen, naproxen, or other NSAIDs. Return to the ER if you have any other worsening condition or concerns. All discharge instructions reviewed with patient and/or family. Voiced understanding. Scripts No Active Prescriptions or Reported Meds Medical Student Attestation and Attending Note: I have personally interviewed and examined this patient along with Barbi Cardenas, MS4. I have reviewed student documentation including history, physical, and assessments. I agree with the documentation except where otherwise noted. Exam: General: Alert, oriented, no acute distress, well developed HEENT: Normocephalic and atraumatic Heart: Regular rate and rhythm without murmur Lungs: Clear to auscultation bilaterally with normal effort Abdomen: Soft, nontender, nondistended, normal bowel sounds Rectal: Faint erythematous blood dried around the anus. No fissures or hemorrhoids apparent. Digital rectal exam was deferred since patient has had colonoscopy within the last couple of months. Neuropsych: Alert, oriented, no focal deficits Skin: Warm and dry without rashes Patient had no active bleeding during his ER stay. A 1 g drop in hemoglobin was noted from February 23 to February 24. Vital signs were normal. Patient is agreeable to discharge with close observation at home. (REGINA CHAMBERS MD) Copy Copies To 1: IESHA HERNANDEZ Copies To 2: CHADWICK CHICAS KATHRYN MED STUDENT Feb 24, 2021 23:17 REGINA CHAMBERS MD Feb 25, 2021 01:39
[2021-02-24 23:25] LABS: ALBUMIN 3.9 GM/DL (3.2-4.5)
[2021-02-24 23:26] LABS: POTASSIUM 3.9 MMOL/L (3.6-5.0)
[2021-02-24 23:28] LABS: TOTAL PROTEIN 6.6 GM/DL (6.4-8.2)
[2021-02-24 23:30] LABS: BILIRUBIN,TOTAL 0.8 MG/DL (0.1-1.0)
[2021-02-24 23:32] LABS: CREATININE SERUM 0.79 MG/DL (0.60-1.30)
[2021-02-25 01:52] VITALS: BP 134/82
== END 2021-02-25 01:54 | disposition home or self-care (01) ==
LOC: EDUNIT# 22:50 → ER 22:52
DX: D37.5 Neoplasm of uncertain behavior of rectum (principal); E66.9 Obesity, unspecified; Z68.41 Body mass index [BMI] 40.0-44.9, adult
CPT/HCPCS: 36415; 80053; 85025

== ENCOUNTER 2021-03-23 10:12 | Outpatient (RCR) | payer OTHER ==
[2021-01-05 09:35] LABS: BASOPHILS % (AUTO) 1 % (0-10); EOSINOPHILS # (AUTO) 0.2 10^3/uL (0.0-0.3); EOSINOPHILS % (AUTO) 4 % (0-10); HEMATOCRIT 41 % (40-54); HEMOGLOBIN 13.6 g/dL (13.3-17.7); LYMPHOCYTES # (AUTO) 1.5 10^3/uL (1.0-4.0); LYMPHOCYTES % (AUTO) 29 % (12-44); MEAN CORPUSCULAR HEMOGLOBIN 30 pg (25-34); MEAN CORPUSCULAR HGB CONC 33 g/dL (32-36); MEAN CORPUSCULAR VOLUME 91 fL (80-99); MEAN PLATELET VOLUME 9.6 fL (9.0-12.2); MONOCYTES # (AUTO) 0.5 10^3/uL (0.0-1.0); MONOCYTES % (AUTO) 9 % (0-12); NEUTROPHILS # (AUTO) 2.9 10^3/uL (1.8-7.8); NEUTROPHILS % (AUTO) 57 % (42-75); PLATELET COUNT 209 10^3/uL (130-400); WHITE BLOOD COUNT 5.2 10^3/uL (4.3-11.0)
[2021-01-05 09:54] LABS: CALCIUM 8.6 MG/DL (8.5-10.1); CREATININE SERUM 0.81 MG/DL (0.60-1.30); POTASSIUM 4.3 MMOL/L (3.6-5.0)
[2021-01-12 12:55] LABS: BASOPHILS % (AUTO) 0 % (0-10); EOSINOPHILS # (AUTO) 0.3 10^3/uL (0.0-0.3); EOSINOPHILS % (AUTO) 6 % (0-10); HEMATOCRIT 39 % (40-54); HEMOGLOBIN 13.4 g/dL (13.3-17.7); LYMPHOCYTES # (AUTO) 1.3 10^3/uL (1.0-4.0); LYMPHOCYTES % (AUTO) 23 % (12-44); MEAN CORPUSCULAR HEMOGLOBIN 31 pg (25-34); MEAN CORPUSCULAR HGB CONC 34 g/dL (32-36); MEAN CORPUSCULAR VOLUME 91 fL (80-99); MEAN PLATELET VOLUME 8.8 fL (9.0-12.2); MONOCYTES # (AUTO) 0.5 10^3/uL (0.0-1.0); MONOCYTES % (AUTO) 10 % (0-12); NEUTROPHILS # (AUTO) 3.4 10^3/uL (1.8-7.8); NEUTROPHILS % (AUTO) 61 % (42-75); PLATELET COUNT 168 10^3/uL (130-400); WHITE BLOOD COUNT 5.6 10^3/uL (4.3-11.0)
[2021-01-12 13:13] LABS: CALCIUM 8.9 MG/DL (8.5-10.1); CREATININE SERUM 0.95 MG/DL (0.60-1.30); POTASSIUM 4.3 MMOL/L (3.6-5.0)
[2021-01-19 09:18] LABS: BASOPHILS % (AUTO) 1 % (0-10); EOSINOPHILS # (AUTO) 0.3 10^3/uL (0.0-0.3); EOSINOPHILS % (AUTO) 4 % (0-10); HEMATOCRIT 41 % (40-54); HEMOGLOBIN 13.8 g/dL (13.3-17.7); LYMPHOCYTES # (AUTO) 1.2 10^3/uL (1.0-4.0); LYMPHOCYTES % (AUTO) 18 % (12-44); MEAN CORPUSCULAR HEMOGLOBIN 31 pg (25-34); MEAN CORPUSCULAR HGB CONC 34 g/dL (32-36); MEAN CORPUSCULAR VOLUME 92 fL (80-99); MEAN PLATELET VOLUME 8.6 fL (9.0-12.2); MONOCYTES # (AUTO) 0.5 10^3/uL (0.0-1.0); MONOCYTES % (AUTO) 8 % (0-12); NEUTROPHILS # (AUTO) 4.5 10^3/uL (1.8-7.8); NEUTROPHILS % (AUTO) 69 % (42-75); PLATELET COUNT 175 10^3/uL (130-400); WHITE BLOOD COUNT 6.5 10^3/uL (4.3-11.0)
[2021-01-19 09:36] LABS: CALCIUM 9.2 MG/DL (8.5-10.1); CREATININE SERUM 0.93 MG/DL (0.60-1.30); MAGNESIUM 2.7 MG/DL (1.6-2.4); POTASSIUM 4.7 MMOL/L (3.6-5.0)
[2021-01-26 09:31] LABS: BASOPHILS % (AUTO) 0 % (0-10); EOSINOPHILS # (AUTO) 0.3 10^3/uL (0.0-0.3); EOSINOPHILS % (AUTO) 5 % (0-10); HEMATOCRIT 39 % (40-54); LYMPHOCYTES # (AUTO) 0.9 10^3/uL (1.0-4.0); LYMPHOCYTES % (AUTO) 15 % (12-44); MEAN CORPUSCULAR HEMOGLOBIN 31 pg (25-34); MEAN CORPUSCULAR HGB CONC 34 g/dL (32-36); MEAN CORPUSCULAR VOLUME 92 fL (80-99); MEAN PLATELET VOLUME 8.7 fL (9.0-12.2); MONOCYTES # (AUTO) 0.5 10^3/uL (0.0-1.0); MONOCYTES % (AUTO) 9 % (0-12); NEUTROPHILS % (AUTO) 69 % (42-75); PLATELET COUNT 220 10^3/uL (130-400); WHITE BLOOD COUNT 5.8 10^3/uL (4.3-11.0)
[2021-01-26 09:51] LABS: ALBUMIN 4.1 GM/DL (3.2-4.5); BILIRUBIN,TOTAL 0.6 MG/DL (0.1-1.0); CALCIUM 9.1 MG/DL (8.5-10.1); CREATININE SERUM 0.8 MG/DL (0.60-1.30); MAGNESIUM 2.2 MG/DL (1.6-2.4); POTASSIUM 4.3 MMOL/L (3.6-5.0); TOTAL PROTEIN 7.2 GM/DL (6.4-8.2)
[2021-02-02 09:47] LABS: BASOPHILS % (AUTO) 1 % (0-10); EOSINOPHILS # (AUTO) 0.3 10^3/uL (0.0-0.3); EOSINOPHILS % (AUTO) 5 % (0-10); HEMATOCRIT 39 % (40-54); HEMOGLOBIN 12.9 g/dL (13.3-17.7); LYMPHOCYTES # (AUTO) 0.6 10^3/uL (1.0-4.0); LYMPHOCYTES % (AUTO) 10 % (12-44); MEAN CORPUSCULAR HEMOGLOBIN 32 pg (25-34); MEAN CORPUSCULAR HGB CONC 33 g/dL (32-36); MEAN CORPUSCULAR VOLUME 95 fL (80-99); MEAN PLATELET VOLUME 8.5 fL (9.0-12.2); MONOCYTES # (AUTO) 0.6 10^3/uL (0.0-1.0); MONOCYTES % (AUTO) 10 % (0-12); NEUTROPHILS # (AUTO) 4.2 10^3/uL (1.8-7.8); NEUTROPHILS % (AUTO) 73 % (42-75); PLATELET COUNT 213 10^3/uL (130-400); WHITE BLOOD COUNT 5.8 10^3/uL (4.3-11.0)
[2021-02-02 11:47] LABS: ALBUMIN 4.1 GM/DL (3.2-4.5); BILIRUBIN,TOTAL 0.8 MG/DL (0.1-1.0); CALCIUM 9.1 MG/DL (8.5-10.1); CREATININE SERUM 0.84 MG/DL (0.60-1.30); MAGNESIUM 2.2 MG/DL (1.6-2.4); POTASSIUM 4.4 MMOL/L (3.6-5.0); TOTAL PROTEIN 7.1 GM/DL (6.4-8.2)
[2021-02-16 09:06] LABS: BASOPHILS % (AUTO) 1 % (0-10); EOSINOPHILS # (AUTO) 0.3 10^3/uL (0.0-0.3); EOSINOPHILS % (AUTO) 7 % (0-10); HEMATOCRIT 39 % (40-54); LYMPHOCYTES # (AUTO) 0.5 10^3/uL (1.0-4.0); LYMPHOCYTES % (AUTO) 11 % (12-44); MEAN CORPUSCULAR HEMOGLOBIN 32 pg (25-34); MEAN CORPUSCULAR HGB CONC 33 g/dL (32-36); MEAN CORPUSCULAR VOLUME 98 fL (80-99); MEAN PLATELET VOLUME 9.4 fL (9.0-12.2); MONOCYTES # (AUTO) 0.5 10^3/uL (0.0-1.0); MONOCYTES % (AUTO) 11 % (0-12); NEUTROPHILS # (AUTO) 3.1 10^3/uL (1.8-7.8); NEUTROPHILS % (AUTO) 69 % (42-75); PLATELET COUNT 195 10^3/uL (130-400); WHITE BLOOD COUNT 4.5 10^3/uL (4.3-11.0)
[2021-02-16 09:28] LABS: CALCIUM 9.3 MG/DL (8.5-10.1); CREATININE SERUM 0.82 MG/DL (0.60-1.30); MAGNESIUM 2.2 MG/DL (1.6-2.4); POTASSIUM 4.7 MMOL/L (3.6-5.0)
[2021-02-23 14:10] LABS: BASOPHILS % (AUTO) 0 % (0-10); EOSINOPHILS # (AUTO) 0.5 10^3/uL (0.0-0.3); EOSINOPHILS % (AUTO) 7 % (0-10); HEMATOCRIT 39 % (40-54); HEMOGLOBIN 13.2 g/dL (13.3-17.7); LYMPHOCYTES # (AUTO) 0.6 10^3/uL (1.0-4.0); LYMPHOCYTES % (AUTO) 8 % (12-44); MEAN CORPUSCULAR HEMOGLOBIN 33 pg (25-34); MEAN CORPUSCULAR HGB CONC 34 g/dL (32-36); MEAN CORPUSCULAR VOLUME 97 fL (80-99); MEAN PLATELET VOLUME 9.3 fL (9.0-12.2); MONOCYTES # (AUTO) 0.6 10^3/uL (0.0-1.0); MONOCYTES % (AUTO) 8 % (0-12); NEUTROPHILS # (AUTO) 5.6 10^3/uL (1.8-7.8); NEUTROPHILS % (AUTO) 76 % (42-75); PLATELET COUNT 220 10^3/uL (130-400); WHITE BLOOD COUNT 7.4 10^3/uL (4.3-11.0)
[2021-02-23 14:34] LABS: ALBUMIN 4.2 GM/DL (3.2-4.5); BILIRUBIN,TOTAL 0.7 MG/DL (0.1-1.0); CALCIUM 9.2 MG/DL (8.5-10.1); CREATININE SERUM 0.8 MG/DL (0.60-1.30); POTASSIUM 4.2 MMOL/L (3.6-5.0); TOTAL PROTEIN 7.2 GM/DL (6.4-8.2)
[2021-03-02 09:38] LABS: BASOPHILS % (AUTO) 1 % (0-10); EOSINOPHILS # (AUTO) 0.6 10^3/uL (0.0-0.3); EOSINOPHILS % (AUTO) 11 % (0-10); HEMATOCRIT 40 % (40-54); HEMOGLOBIN 13.6 g/dL (13.3-17.7); LYMPHOCYTES # (AUTO) 0.8 10^3/uL (1.0-4.0); LYMPHOCYTES % (AUTO) 17 % (12-44); MEAN CORPUSCULAR HEMOGLOBIN 33 pg (25-34); MEAN CORPUSCULAR HGB CONC 34 g/dL (32-36); MEAN CORPUSCULAR VOLUME 97 fL (80-99); MEAN PLATELET VOLUME 9.4 fL (9.0-12.2); MONOCYTES # (AUTO) 0.5 10^3/uL (0.0-1.0); MONOCYTES % (AUTO) 10 % (0-12); NEUTROPHILS % (AUTO) 60 % (42-75); PLATELET COUNT 238 10^3/uL (130-400); WHITE BLOOD COUNT 4.9 10^3/uL (4.3-11.0)
[2021-03-02 10:13] LABS: CALCIUM 9.7 MG/DL (8.5-10.1); CREATININE SERUM 0.75 MG/DL (0.60-1.30); MAGNESIUM 2.1 MG/DL (1.6-2.4); POTASSIUM 4.5 MMOL/L (3.6-5.0)
[2021-03-12 10:48] LABS: BASOPHILS % (AUTO) 1 % (0-10); EOSINOPHILS # (AUTO) 1.1 10^3/uL (0.0-0.3); EOSINOPHILS % (AUTO) 17 % (0-10); HEMATOCRIT 40 % (40-54); HEMOGLOBIN 13.6 g/dL (13.3-17.7); LYMPHOCYTES # (AUTO) 1.1 10^3/uL (1.0-4.0); LYMPHOCYTES % (AUTO) 17 % (12-44); MEAN CORPUSCULAR HEMOGLOBIN 33 pg (25-34); MEAN CORPUSCULAR HGB CONC 34 g/dL (32-36); MEAN CORPUSCULAR VOLUME 95 fL (80-99); MEAN PLATELET VOLUME 9.7 fL (9.0-12.2); MONOCYTES # (AUTO) 0.6 10^3/uL (0.0-1.0); MONOCYTES % (AUTO) 9 % (0-12); NEUTROPHILS # (AUTO) 3.5 10^3/uL (1.8-7.8); NEUTROPHILS % (AUTO) 55 % (42-75); PLATELET COUNT 216 10^3/uL (130-400); WHITE BLOOD COUNT 6.4 10^3/uL (4.3-11.0)
[2021-03-12 11:06] LABS: CALCIUM 9.6 MG/DL (8.5-10.1); CREATININE SERUM 0.75 MG/DL (0.60-1.30); MAGNESIUM 1.9 MG/DL (1.6-2.4); POTASSIUM 4.2 MMOL/L (3.6-5.0)
[2021-03-16 10:21] LABS: BASOPHILS % (AUTO) 0 % (0-10); EOSINOPHILS # (AUTO) 1.1 10^3/uL (0.0-0.3); EOSINOPHILS % (AUTO) 19 % (0-10); HEMATOCRIT 39 % (40-54); HEMOGLOBIN 13.3 g/dL (13.3-17.7); LYMPHOCYTES # (AUTO) 0.9 10^3/uL (1.0-4.0); LYMPHOCYTES % (AUTO) 15 % (12-44); MEAN CORPUSCULAR HEMOGLOBIN 33 pg (25-34); MEAN CORPUSCULAR HGB CONC 34 g/dL (32-36); MEAN CORPUSCULAR VOLUME 95 fL (80-99); MEAN PLATELET VOLUME 9.4 fL (9.0-12.2); MONOCYTES # (AUTO) 0.5 10^3/uL (0.0-1.0); MONOCYTES % (AUTO) 8 % (0-12); NEUTROPHILS # (AUTO) 3.5 10^3/uL (1.8-7.8); NEUTROPHILS % (AUTO) 57 % (42-75); PLATELET COUNT 200 10^3/uL (130-400); WHITE BLOOD COUNT 6.1 10^3/uL (4.3-11.0)
[2021-03-16 10:43] LABS: CALCIUM 9.3 MG/DL (8.5-10.1); CREATININE SERUM 0.73 MG/DL (0.60-1.30); POTASSIUM 4.8 MMOL/L (3.6-5.0)
[2021-03-23 10:22] LABS: BASOPHILS % (AUTO) 1 % (0-10); EOSINOPHILS # (AUTO) 1.3 10^3/uL (0.0-0.3); EOSINOPHILS % (AUTO) 22 % (0-10); HEMATOCRIT 40 % (40-54); HEMOGLOBIN 13.5 g/dL (13.3-17.7); LYMPHOCYTES # (AUTO) 1.1 10^3/uL (1.0-4.0); LYMPHOCYTES % (AUTO) 18 % (12-44); MEAN CORPUSCULAR HEMOGLOBIN 32 pg (25-34); MEAN CORPUSCULAR HGB CONC 34 g/dL (32-36); MEAN CORPUSCULAR VOLUME 96 fL (80-99); MEAN PLATELET VOLUME 9.1 fL (9.0-12.2); MONOCYTES # (AUTO) 0.5 10^3/uL (0.0-1.0); MONOCYTES % (AUTO) 8 % (0-12); NEUTROPHILS % (AUTO) 51 % (42-75); PLATELET COUNT 219 10^3/uL (130-400); WHITE BLOOD COUNT 5.9 10^3/uL (4.3-11.0)
[2021-03-23 10:36] LABS: CALCIUM 9.4 MG/DL (8.5-10.1); CREATININE SERUM 0.75 MG/DL (0.60-1.30); POTASSIUM 4.8 MMOL/L (3.6-5.0)
== END 2021-03-29 | disposition home or self-care (01) ==
LOC: ONC 10:12
PROVIDERS: ATTEND Internal Medicine Hematology & Oncology
DX: Z51.0 Encounter for antineoplastic radiation therapy (principal); C20 Malignant neoplasm of rectum
CPT/HCPCS: 77336; 77385; 77386; 80048; 80053; 82378; 83735; 85025; 99213

== ENCOUNTER 2021-04-10 16:39 | Emergency (ER) | payer OTHER ==
[~2021-04-10] VITALS: Ht 175 cm; Wt 121.0 kg
[2021-04-10 17:12] LABS: BASOPHILS % (AUTO) 0 % (0-10); EOSINOPHILS # (AUTO) 0.1 10^3/uL (0.0-0.3); EOSINOPHILS % (AUTO) 1 % (0-10); HEMATOCRIT 37 % (40-54); HEMOGLOBIN 12.7 g/dL (13.3-17.7); LYMPHOCYTES # (AUTO) 1.3 10^3/uL (1.0-4.0); LYMPHOCYTES % (AUTO) 10 % (12-44); MEAN CORPUSCULAR HEMOGLOBIN 33 pg (25-34); MEAN CORPUSCULAR HGB CONC 35 g/dL (32-36); MEAN CORPUSCULAR VOLUME 95 fL (80-99); MONOCYTES # (AUTO) 0.8 10^3/uL (0.0-1.0); MONOCYTES % (AUTO) 6 % (0-12); NEUTROPHILS # (AUTO) 10.5 10^3/uL (1.8-7.8); NEUTROPHILS % (AUTO) 82 % (42-75); PLATELET COUNT 224 10^3/uL (130-400); WHITE BLOOD COUNT 12.8 10^3/uL (4.3-11.0)
[2021-04-10] MEDS ORDERED: IBUPROFEN 800 MG (MOTRIN) TAB PO ONE (17:15)
[2021-04-10 17:21] LABS: PROTHROMBIN TIME PATIENT 13.7 SEC (12.2-14.7)
[2021-04-10 17:26] LABS: ALBUMIN 3.9 GM/DL (3.2-4.5); BILIRUBIN,TOTAL 0.7 MG/DL (0.1-1.0); CALCIUM 8.7 MG/DL (8.5-10.1); CREATININE SERUM 0.84 MG/DL (0.60-1.30); POTASSIUM 3.9 MMOL/L (3.6-5.0); TOTAL PROTEIN 6.7 GM/DL (6.4-8.2)
--- NOTE | 2021-04-10 17:33 | ED General ---
General Chief Complaint: Fever-Adult/Adol Stated Complaint: POST OP FEVER/COUGH/CHILLS Nursing Triage Note: PT AMB TO ROOM 9 PT CO OF FEVER, COUGH, SORETHROAT SINCE 1600 TODAY, PT STATES HAD ROBOTIC RECTAL SURGERY YESTERDAY. Source of Information: Patient Exam Limitations: No Limitations History of Present Illness Date Seen by Provider: Apr 10, 2021 Time Seen by Provider: 16:45 Initial Comments To ER with reports of a cough onset this afternoon around 4 PM with a fever up to a current maximum of 100.9. No shortness of breath. Unvaccinated against Covid. Had resection of a rectal mass yesterday in [place] laparoscopically under general anesthesia. He also has a sore throat. Timing/Duration: 4-6 Hours Severity: Moderate Associated Systoms: Cough Allergies and Home Medications Allergies Coded Allergies: No Known Drug Allergies (Unverified , 10/10/16) Patient Home Medication List Home Medication List Reviewed: Yes Amoxicillin (Amoxicillin) 500 Mg Capsule, 1,000 MG PO TID Prescribed by: JAMAAL HALL on 04/10/211815 Review of Systems Review of Systems Constitutional: see HPI EENTM: see HPI Respiratory: no symptoms reported Genitourinary: no symptoms reported Musculoskeletal: no symptoms reported Skin: no symptoms reported Psychiatric/Neurological: No Symptoms Reported Hematologic/Lymphatic: No Symptoms Reported Immunological/Allergic: no symptoms reported Past Pigtxhd-Mwqsfc-Iggbix Hx Patient Social History Tobacco Use?: No Substance use?: No Alcohol Use?: Yes Alcohol Frequency: Rarely Pt feels they are or have been: No Immunizations Up To Date Tetanus Booster (TDap): More than 5yrs First/Initial COVID19 Vaccinat: NO Second COVID19 Vaccination Semaj: NO Third COVID19 Vaccination Date: NO Seasonal Allergies Seasonal Allergies: No Past Medical History Surgery/Hospitalization HX: mi, rectal cancer Surgeries: No Respiratory: No Cardiac: No Neurological: No Reproductive Disorders: No Genitourinary: No Gastrointestinal: No Musculoskeletal: No Endocrine: No HEENT: No Cancer: Yes Colon Did You Recieve Any Treatments: Yes What Type of Treatment Did You: Chemotherapy, Radiation Psychosocial: No Integumentary: No Blood Disorders: No Family Medical History No Pertinent Family Hx Physical Exam Vital Signs Vital Signs - First Documented 04/10/21 16:50 Temp 38.3 Pulse 81 Resp 18 B/P (MAP) 121/56 (77) Pulse Ox 98 Capillary Refill : Less Than 3 Seconds Height, Weight, BMI Height: 5'9.00" Weight: 250lbs. oz. 113.401273iz; 39.00 BMI Method:Stated General Appearance: No Apparent Distress, WD/WN Eyes: Bilateral Eye Normal Inspection, Bilateral Eye PERRL, Bilateral Eye EOMI Neck: Full Range of Motion, Normal Inspection Respiratory: Normal Breath Sounds, No Accessory Muscle Use, No Respiratory Distress Cardiovascular: Regular Rate, Rhythm, Normal Peripheral Pulses Gastrointestinal: Non Tender, Soft Extremity: Normal Capillary Refill, Normal Inspection Neurologic/Psychiatric: Alert, Oriented x3 Skin: Normal Color, Warm/Dry Focused Exam Lactate Level 04/10/21 16:57: Lactic Acid Level 1.74 Lactic Acid Level Laboratory Tests Test 04/10/21 16:57 Lactic Acid Level 1.74 MMOL/L (0.50-2.00) Progress/Results/Core Measures Suspected Sepsis SIRS Temperature: Pulse: 81 Respiratory Rate: 18 Laboratory Tests 04/10/21 16:57: White Blood Count 12.8H Blood Pressure 121 /56 Mean: 77 04/10/21 16:57: Lactic Acid Level 1.74 Laboratory Tests 04/10/21 16:57: Creatinine 0.84, INR Comment 1.0, Platelet Count 224, Total Bilirubin 0.7 Results/Orders Lab Results Laboratory Tests Test 04/10/21 16:52 04/10/21 16:57 04/10/21 17:45 Range/Units SARS-CoV-2 RNA (RT-PCR) Not Detected Not Detecte White Blood Count 12.8 H 4.3-11.0 10^3/uL Red Blood Count 3.86 L 4.30-5.52 10^6/uL Hemoglobin 12.7 L 13.3-17.7 g/dL Hematocrit 37 L 40-54 % Mean Corpuscular Volume 95 80-99 fL Mean Corpuscular Hemoglobin 33 25-34 pg Mean Corpuscular Hemoglobin Concent 35 32-36 g/dL Red Cell Distribution Width 14.3 10.0-14.5 % Platelet Count 224 130-400 10^3/uL Mean Platelet Volume 10.0 9.0-12.2 fL Immature Granulocyte % (Auto) 0 % Neutrophils (%) (Auto) 82 H 42-75 % Lymphocytes (%) (Auto) 10 L 12-44 % Monocytes (%) (Auto) 6 0-12 % Eosinophils (%) (Auto) 1 0-10 % Basophils (%) (Auto) 0 0-10 % Neutrophils # (Auto) 10.5 H 1.8-7.8 10^3/uL Lymphocytes # (Auto) 1.3 1.0-4.0 10^3/uL Monocytes # (Auto) 0.8 0.0-1.0 10^3/uL Eosinophils # (Auto) 0.1 0.0-0.3 10^3/uL Basophils # (Auto) 0.0 0.0-0.1 10^3/uL Immature Granulocyte # (Auto) 0.1 0.0-0.1 10^3/uL Prothrombin Time 13.7 12.2-14.7 SEC INR Comment 1.0 0.8-1.4 Activated Partial Thromboplast Time 26 24-35 SEC Sodium Level 140 135-145 MMOL/L Potassium Level 3.9 3.6-5.0 MMOL/L Chloride Level 104 98-107 MMOL/L Carbon Dioxide Level 24 21-32 MMOL/L Anion Gap 12 5-14 MMOL/L Blood Urea Nitrogen 20 H 7-18 MG/DL Creatinine 0.84 0.60-1.30 MG/DL Estimat Glomerular Filtration Rate 95 BUN/Creatinine Ratio 24 Glucose Level 163 H 70-105 MG/DL Lactic Acid Level 1.74 0.50-2.00 MMOL/L Calcium Level 8.7 8.5-10.1 MG/DL Corrected Calcium 8.8 8.5-10.1 MG/DL Total Bilirubin 0.7 0.1-1.0 MG/DL Aspartate Amino Transf (AST/SGOT) 25 5-34 U/L Alanine Aminotransferase (ALT/SGPT) 52 0-55 U/L Alkaline Phosphatase 57 40-136 U/L Total Protein 6.7 6.4-8.2 GM/DL Albumin 3.9 3.2-4.5 GM/DL Urine Color YELLOW Urine Clarity SL CLOUDY Urine pH 6.0 5-9 Urine Specific [place] 1.025 H 1.016-1.022 Urine Protein NEGATIVE NEGATIVE Urine Glucose (UA) NEGATIVE NEGATIVE Urine Ketones NEGATIVE NEGATIVE Urine Nitrite NEGATIVE NEGATIVE Urine Bilirubin NEGATIVE NEGATIVE Urine Urobilinogen 0.2 < = 1.0 MG/DL Urine Leukocyte Esterase NEGATIVE NEGATIVE Urine RBC (Auto) NEGATIVE NEGATIVE Urine RBC NONE /HPF Urine WBC RARE /HPF Urine Squamous Epithelial Cells RARE /HPF Urine Crystals NONE /LPF Urine Bacteria NEGATIVE /HPF Urine Casts NONE /LPF Urine Mucus SMALL H /LPF Urine Culture Indicated CULTURE PENDING My Orders Orders - JAMAAL HALL APRN Cbc With Automated Diff (04/10/21 17:04) Comprehensive Metabolic Panel (04/10/21 17:04) Blood Culture (04/10/21 17:04) Sputum Culture (04/10/21 17:04) Urinalysis (04/10/21 17:04) Urine Culture (04/10/21 17:04) Protime With Inr (04/10/21 17:04) Partial Thromboplastin Time (04/10/21 17:04) Chest 1 View, Ap/Pa Only (04/10/21 17:04) Ed Iv/Invasive Line Start (04/10/21 17:04) Ed Iv/Invasive Line Start (04/10/21 17:04) Vital Signs Adult Sepsis Patie Q15M (04/10/21 17:04) O2 (04/10/21 17:04) Remove Rings In Anticipation O (04/10/21 17:04) Lactic Acid Analyzer (04/10/21 17:04) Covid 19 Inhouse Test (04/10/21 17:04) Ibuprofen Tablet (Motrin Tablet) (04/10/21 17:15) Ceftriaxone (Rocephin) (04/10/21 18:15) Medications Given in ED Current Medications Medications Dose Ordered Sig/Zhanna Route Start Time Stop Time Status Last Admin Dose Admin Ceftriaxone Sodium 1000 mg/ Sterile Water 10 ml @ 200 mls/hr ONCE ONCE IV 04/10/21 18:15 04/10/21 18:17 DC 04/10/21 18:24 200 MLS/HR Ibuprofen 800 mg ONCE ONCE PO 04/10/21 17:15 04/10/21 17:16 DC 04/10/21 17:39 800 MG Vital Signs/I&O 04/10/21 04/10/21 16:50 18:24 Temp 38.3 Pulse 81 72 Resp 18 18 B/P (MAP) 121/56 (77) 111/65 Pulse Ox 98 98 Capillary Refill : Less Than 3 Seconds Blood Pressure Mean: 77 Departure Communication (Admissions) NAME: GABRIELA ARMENTA [facility] REC#: [id number] PT STATUS: REG ER : 1965 PHYSICIAN: JAMAAL HALL APRN ADMIT DATE: 04/10/21/ER Draft Date of Exam:04/10/21 CHEST 1 VIEW, AP/PA ONLY INDICATION: Sepsis. EXAMINATION: AP view of the chest was obtained. COMPARISON: Study of 10/10/2016. FINDINGS: Study is somewhat limited due to portable technique; however, heart size and pulmonary vascularity appear to be within normal limits. Mild increased density projecting over the lower chest may be due to overlying soft tissues although mild basilar atelectasis or pneumonitis is not excluded. IMPRESSION: Possible mild basilar atelectasis and/or pneumonitis without other evidence of acute abnormality. Follow-up PA and lateral views of the chest would be useful, if possible. Dictated on workstation # [id number] Dict: 04/10/21 1748 Trans: 04/10/21 1750 [facility] [id number] Interpreted by: SARAVANAN MAE MD Electronically signed by: Impression Primary Impression: Pneumonia Disposition: 01 HOME, SELF-CARE Condition: Stable Departure-Patient Inst. Decision time for Depature: 18:15 Referrals: CHADWICK CHICAS DO (PCP/Family) Primary Care Physician Patient Instructions: Pneumonia, Adult ED Add. Discharge Instructions: 1. Antibiotic as directed. Return to ER for any concerns. Follow-up with your doctor next week. All discharge instructions reviewed with patient and/or family. Voiced understanding. Scripts Amoxicillin (Amoxicillin) 500 Mg Capsule 1000 MG PO TID, #42 CAP 0 Refills Prov: JAMAAL HALL APRN 04/10/21 JAMAAL HALL APRN Apr 10, 2021 17:33
[2021-04-10 17:50] LABS: BILIRUBIN,URINE NEGATIVE (NEGATIVE); CLARITY,URINE SL CLOUDY; COLOR,URINE YELLOW; GLUCOSE, URINE (UA) NEGATIVE (NEGATIVE); KETONES,URINE NEGATIVE (NEGATIVE); LEUKOCYTE ESTERASE ,URINE NEGATIVE (NEGATIVE); NITRITE,URINE NEGATIVE (NEGATIVE); PROTEIN,URINE NEGATIVE (NEGATIVE)
--- NOTE | 2021-04-10 17:51 | Diagnostic Imaging Report ---
INDICATION: Sepsis. EXAMINATION: AP view of the chest was obtained. COMPARISON: Study of 10/10/2016. FINDINGS: Study is somewhat limited due to portable technique; however, heart size and pulmonary vascularity appear to be within normal limits. Mild increased density projecting over the lower chest may be due to overlying soft tissues although mild basilar atelectasis or pneumonitis is not excluded. IMPRESSION: Possible mild basilar atelectasis and/or pneumonitis without other evidence of acute abnormality. Follow-up PA and lateral views of the chest would be useful, if possible. Dictated by: Dictated on workstation # [id number]
[2021-04-10 18:01] LABS: BACTERIA,URINE NEGATIVE /HPF; SQUAMOUS EPITHELIAL CELL,UR RARE /HPF; WBC,URINE RARE /HPF
[2021-04-10] MEDS ORDERED: cefTRIAXone 1,000 MG in WATER (STERILE) FOR INJECTION 10 ML IV ONE (18:15)
[2021-04-10] MEDS ORDERED: AMOX500C2 PO (18:16)
[2021-04-10 18:24] VITALS: BP 111/65
== END 2021-04-10 18:27 | disposition home or self-care (01) ==
LOC: EDUNIT# 16:39 → ER 16:42
DX: J18.9 Pneumonia, unspecified organism (principal); Z20.822 Contact with and (suspected) exposure to COVID-19
CPT/HCPCS: 36415; 71045; 80053; 81000; 83605; 85025; 85610; 85730; 87040; 87088; 87636

== ENCOUNTER → 2021-04-14 | Outpatient (CLI) | payer OTHER ==
[~2021-04-14] MED LIST changes: +AMOX500C2 PO; -GADOBUTROL 15 MMOL/15 ML (GADAVIST) VIAL IV ONE
[2021-04-14 13:15] LABS: HEMATOCRIT 36 % (40-54); HEMOGLOBIN 12.5 g/dL (13.3-17.7); MEAN CORPUSCULAR HEMOGLOBIN 33 pg (25-34); MEAN CORPUSCULAR HGB CONC 34 g/dL (32-36); MEAN CORPUSCULAR VOLUME 95 fL (80-99); MEAN PLATELET VOLUME 9.8 fL (9.0-12.2); PLATELET COUNT 274 10^3/uL (130-400); WHITE BLOOD COUNT 9.5 10^3/uL (4.3-11.0)
== END ==
LOC: LAB 12:45
PROVIDERS: ATTEND Family Medicine
DX: R19.5 Other fecal abnormalities (principal)
CPT/HCPCS: 36415; 82274; 85027; 87324; 87449

== ENCOUNTER 2021-05-21 08:41 | Outpatient (RCR) | payer OTHER ==
[2021-03-30 09:43] LABS: BASOPHILS % (AUTO) 1 % (0-10); EOSINOPHILS % (AUTO) 15 % (0-10); HEMATOCRIT 39 % (40-54); HEMOGLOBIN 13.3 g/dL (13.3-17.7); LYMPHOCYTES # (AUTO) 1.1 10^3/uL (1.0-4.0); LYMPHOCYTES % (AUTO) 16 % (12-44); MEAN CORPUSCULAR HEMOGLOBIN 32 pg (25-34); MEAN CORPUSCULAR HGB CONC 34 g/dL (32-36); MEAN CORPUSCULAR VOLUME 96 fL (80-99); MEAN PLATELET VOLUME 9.2 fL (9.0-12.2); MONOCYTES # (AUTO) 0.5 10^3/uL (0.0-1.0); MONOCYTES % (AUTO) 8 % (0-12); NEUTROPHILS % (AUTO) 59 % (42-75); PLATELET COUNT 228 10^3/uL (130-400); WHITE BLOOD COUNT 6.8 10^3/uL (4.3-11.0)
[2021-03-30 10:05] LABS: CREATININE SERUM 0.72 MG/DL (0.60-1.30); POTASSIUM 4.4 MMOL/L (3.6-5.0)
[2021-05-21 08:55] LABS: BASOPHILS % (AUTO) 0 % (0-10); EOSINOPHILS # (AUTO) 0.6 10^3/uL (0.0-0.3); EOSINOPHILS % (AUTO) 10 % (0-10); HEMATOCRIT 41 % (40-54); HEMOGLOBIN 13.8 g/dL (13.3-17.7); LYMPHOCYTES # (AUTO) 1.3 10^3/uL (1.0-4.0); LYMPHOCYTES % (AUTO) 21 % (12-44); MEAN CORPUSCULAR HEMOGLOBIN 32 pg (25-34); MEAN CORPUSCULAR HGB CONC 34 g/dL (32-36); MEAN CORPUSCULAR VOLUME 95 fL (80-99); MEAN PLATELET VOLUME 9.4 fL (9.0-12.2); MONOCYTES # (AUTO) 0.5 10^3/uL (0.0-1.0); MONOCYTES % (AUTO) 8 % (0-12); NEUTROPHILS # (AUTO) 3.8 10^3/uL (1.8-7.8); NEUTROPHILS % (AUTO) 61 % (42-75); PLATELET COUNT 253 10^3/uL (130-400); WHITE BLOOD COUNT 6.2 10^3/uL (4.3-11.0)
[2021-05-21 09:20] LABS: ALBUMIN 4.2 GM/DL (3.2-4.5); BILIRUBIN,TOTAL 0.7 MG/DL (0.1-1.0); CALCIUM 9.9 MG/DL (8.5-10.1); CREATININE SERUM 0.79 MG/DL (0.60-1.30); TOTAL PROTEIN 7.5 GM/DL (6.4-8.2)
== END 2021-06-05 | disposition home or self-care (01) ==
LOC: ONC 08:41
PROVIDERS: ATTEND Internal Medicine Hematology & Oncology
DX: C20 Malignant neoplasm of rectum (principal)
CPT/HCPCS: 80048; 80053; 85025; 99213

== ENCOUNTER 2021-08-03 05:34 | Outpatient (CLI) | payer SELFPAY ==
[~2021-08-03] VITALS: Ht 175.3 cm; Wt 119.0 kg
== END 2021-08-03 12:51 | disposition home or self-care (01) ==
LOC: PREOP 05:34
PROVIDERS: ATTEND Surgery
DX: Z01.818 Encounter for other preprocedural examination (principal)

== ENCOUNTER 2021-08-05 10:36 | Day surgery (SDC) | payer OTHER ==
--- NOTE | 2021-07-31 17:58 | HISTORY AND PHYSICAL ---
DATE OF SERVICE: ATTENDING PRIMARY CARE PHYSICIAN: DATE OF ADMISSION: 08/05/2021. ATTENDING PRIMARY CARE PHYSICIAN: Dr. Kellen Hamilton. HISTORY OF PRESENT ILLNESS: The patient is a 55-year-old male, who was initially seen in 11/2020 for rectal bleeding, which was significant. He underwent a colonoscopy on 11/19/2020 and found to have a large sessile polyp of the distal rectum as well as a pedunculated polyp of the sigmoid colon and descending colon. 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 The patient was referred to oncology and underwent a partial neoadjuvant chemoradiation; however, did not complete a course of chemotherapy due to the discrepancy on the type of lesion. Based on the PET scan as well as the operative report, we feel that the lesion was more within the rectum. He will be undergoing completion chemotherapy and will require a Groshong implantable catheter. PAST MEDICAL HISTORY: Rectal cancer. PAST SURGICAL HISTORY: None. ALLERGIES: No known drug allergies. MEDICATIONS: None. SOCIAL HISTORY: Positive smoke. Rare alcohol. FAMILY HISTORY: Noncontributory. REVIEW OF SYSTEMS: A well-nourished male currently in no acute distress. He is not experiencing any shortness of breath or difficulty in breathing. No chest pain, palpitations, diaphoresis. No nausea, vomiting, no diarrhea or constipation, no red blood per rectum, no dark tarry stools. No fever, chills, no recent inadvertent weight loss. All other review of systems negative. PHYSICAL EXAMINATION: VITAL SIGNS: Blood pressure 157/88. Current weight is 260 pounds at 5 feet 9 inches. CHEST: Clear. Good breath sounds bilaterally. HEART: Regular and no murmurs. EXTREMITIES: No lower extremity edema and negative Homans sign. HEENT: No scleral icterus. NECK: No cervical lymphadenopathy. ABDOMEN: Soft, nontender, and nondistended. SKIN: Warm, dry. ASSESSMENT AND PLAN: A 55-year-old male with a rectal cancer, who underwent a partial neoadjuvant chemoradiation and will require completion chemotherapy based on multiple discussions with the tumor board and will require a central venous catheter, which we will schedule immediately. Job ID: [id number] DocumentID: [id number] Dictated Date: 07/31/2021 17:39:21 Ventilating Engineer Date: 07/31/2021 17:56:53 Dictated By: OFELIA CACERES MD
[~2021-08-05] VITALS: Ht 175.3 cm; Wt 119.0 kg
[2021-08-05] VITALS (10 sets, daily range): BP systolic 97–140; BP diastolic 58–83
[~2021-08-05 10:36] MED LIST changes: +LACTATED RINGERS 1,000 ML IV PRN; +ceFAZolin 2 GM IV Premixed 50 ML IV ONE
--- NOTE | 2021-08-05 10:41 | Progress Note-Pre Operative ---
Pre-Operative Progress Note H&P Reviewed The H&P was reviewed, patient examined and no changes noted. Date Seen by Provider: Aug 05, 2021 Time Seen by Provider: 10:30 Date H&P Reviewed: Aug 05, 2021 Time H&P Reviewed: 10:30 Pre-Operative Diagnosis: rectal cancer OFELIA CACERES MD Aug 05, 2021 10:41
--- NOTE | 2021-08-05 10:42 | Discharge Inst-Surgical ---
D/C Lap Instructions-NICKI Follow up PRN Activity as tolerated may access and use port at any time. Regular Diet Symptoms to Report: Fever over 101 degree F, Nausea/Vomiting Infection Signs and Symptoms to report: Increased redness, Foul odor of wound, Increased drainage Bathing instructions: May shower Operative Area Clean/Dry; Keep incision clean/dry If any problems/questions: Contact your physician or go to Emergency Room OFELIA CACERES MD Aug 05, 2021 10:42
[2021-08-05] MEDS ORDERED: ONDANSETRON 4 MG/2 ML (SDV) Z0FRAN IVP PRN ×2 (10:45→12:30)
[2021-08-05] MEDS ORDERED: morphine INJ 10 MG/ML 1ML (SYR OR VIAL) IVP PRN ×2 (10:45)
[2021-08-05] MEDS ORDERED: HYDROcodone/APAP 5 MG/325 MG (LORTAB) TAB PO ONE (10:45)
[2021-08-05] MEDS ORDERED: ACETAMINOPHEN 325 MG TABLET PO PRN (10:45)
[2021-08-05] MEDS ORDERED: HEParin (CENTRAL IV FLUSH) 500 UNIT/5 ML SYR ONE (10:48)
[2021-08-05] MEDS ORDERED: LIDOCAINE/EPI 1%-1:200,000 (XYLOCAINE) 30 ML VIAL ONE (10:48)
[2021-08-05] MEDS ORDERED: 0.9% SODIUM CHLORIDE PF INJ 20 ML VIAL ONE (10:48)
--- NOTE | 2021-08-05 12:20 | Anesthesia-General Post-Op ---
General Patient Condition Mental Status/LOC: Same as Preop Cardiovascular: Satisfactory Nausea/Vomiting: Absent Respiratory: Satisfactory Pain: Controlled Complications: Absent Post Op Complications Complications None Follow Up Care/Instructions Patient Instructions None needed. Anesthesia/Patient Condition Patient Condition Patient is doing well, no complaints, stable vital signs, no apparent adverse anesthesia problems. No complications reported per nursing. JALEN SMITH CRNA Aug 05, 2021 12:20
--- NOTE | 2021-08-05 12:20 | Progress Note-Post Operative ---
Post-Operative Progess Note Surgeon (s)/Stars Analytical Lead (s) Surgeon OFELIA CACERES MD Stars Analytical Lead: none Pre-Operative Diagnosis rectal cancer Post-Operative Diagnosis same Procedure & Operative Findings Date of Procedure 08/05/21 Procedure Performed/Findings placement left sc groshong catheter under flouroscopy. Anesthesia Type mac with local Estimated Blood Loss Estimated blood loss (mL): minimal Specimens/Packing Specimens Removed none OFELIA CACERES MD Aug 05, 2021 12:19
--- NOTE | 2021-08-05 12:23 | Diagnostic Imaging Report ---
INDICATION: Fluoroscopy for port placement. Fluoroscopy was provided in the OR during port placement. 7 seconds of fluoroscopic time was utilized. A single image was obtained during a left chest wall port with tip overlying SVC. IMPRESSION: Fluoroscopy during port placement. Dictated by: Dictated on workstation # [id number]
[2021-08-05] MEDS ORDERED: MEPERIDINE (DEMEROL) INJ 50 MG/ML IVP ONE (12:30)
[2021-08-05] MEDS ORDERED: fentaNYL INJ 100 MCG/2 ML AMP IVP ONE (12:30)
[2021-08-05] MEDS ORDERED: morphine INJ 10 MG/ML 1ML (SYR OR VIAL) IVP ONE (12:30)
--- NOTE | 2021-08-05 12:38 | Diagnostic Imaging Report ---
INDICATION: Central venous catheter placement. Frontal chest obtained at 12:38 p.m. is compared to 04/10/2021. FINDINGS: Heart and mediastinal silhouette are normal in appearance. Lungs are clear. There is no pneumothorax or pleural fluid. There is a new left-sided central venous catheter with tip overlying the low SVC. IMPRESSION: New left central venous catheter with tip overlying the low SVC. No pneumothorax or pleural fluid or focal infiltrate following device placement. Dictated by: Dictated on workstation # [id number]
--- NOTE | 2021-08-05 16:40 | OPERATIVE REPORT ---
DATE OF SERVICE: 08/05/2021 ATTENDING PRIMARY CARE PHYSICIAN: Kellen Taylor MD. PREOPERATIVE DIAGNOSIS: Rectal cancer. POSTOPERATIVE DIAGNOSIS: Rectal cancer. PROCEDURE PERFORMED: Placement of left subclavian Groshong implantable catheter under fluoroscopy. SURGEON: Ofelia Caceres MD. ANESTHESIA: Monitored anesthesia care with local. ESTIMATED BLOOD LOSS: Minimal. FINDINGS: Catheter tip at superior vena caval - right atrial junction. DISPOSITION: The patient tolerated the procedure well. INDICATIONS FOR PROCEDURE: The patient is a 55-year-old male, who was initially seen 11/2020 for rectal bleeding, which was significant. He underwent a colonoscopy on 11/19/2020 and was found to have a large sessile polyp of the distal rectum and a pedunculated polyp of the sigmoid and descending colon. The rectal lesion came back as a tubulovillous adenoma and the low sigmoid colon lesion came back as invasive moderately differentiated adenocarcinoma as well as extensive high-grade dysplasia. The patient was referred to oncology and underwent partial neoadjuvant chemoradiation; however, did not complete a course of chemotherapy due to the discrepancy of the types of lesion; however, based on the PET scan, the only thing lining up was more of the rectum. He will need to undergo completion chemotherapy and will require Groshong implantable catheter. He is status post transanal resection of the rectal mass as well as what sounds to be a low anterior colorectal resection in [place]. DESCRIPTION OF PROCEDURE: The patient was brought to the operating room and laid supine on the table. After adequate general endotracheal intubation, the abdomen was prepped and draped in a standard surgical fashion. A 1% lidocaine with epinephrine was used to anesthetize the left subclavian region. The left subclavian vein was then cannulated with drawing of venous blood. The guidewire was then inserted under fluoroscopy. Cannulating needle was removed and a skin incision was made using a #15 blade. The dilator and sheath were then placed over the guidewire. The guidewire and dilator were then removed and the Groshong catheter placed through the sheath until the catheter tip was at the superior vena caval - right atrial junction. The sheath was then removed. The inner wire within the catheter was removed, the catheter cut down to size and the port placed onto the catheter. This chest reservoir was then created by extending the incision laterally using a #15 blade. A plane was then created between the anterior pectoralis fascia as well as the subcutaneous fat using blunt dissection as well as electrocautery. Good hemostasis was observed. The port was then placed into the reservoir and sutured to the anterior pectoralis fascia using interrupted 3-0 Vicryl sutures. The subcutaneous tissue was then reapproximated with the same suture. Skin was closed using 4-0 Monocryl running subcuticular suture. Wound was then cleaned and covered with Dermabond. The patient tolerated the procedure well. We will get a post-procedure chest x-ray once confirmation of placement of the port may be accessed and used at any time. Job ID: [id number] DocumentID: [id number] Dictated Date: 08/05/2021 12:25:01 Wick And Base Assembler Date: 08/05/2021 16:39:18 Dictated By: OFELIA CACERES MD MTDD
== END 2021-08-05 14:05 | disposition home or self-care (01) ==
LOC: SDC 10:36
PROVIDERS: ATTEND Surgery
DX: C20 Malignant neoplasm of rectum (principal); E66.9 Obesity, unspecified; F17.200 Nicotine dependence, unspecified, uncomplicated; Z98.890 Other specified postprocedural states; Z85.038 Personal history of other malignant neoplasm of large intestine; Z68.38 Body mass index [BMI] 38.0-38.9, adult
CPT/HCPCS: 36561; 71045; 76000; 87081; C1788

== ENCOUNTER → 2022-01-13 | Outpatient (CLI) | payer SELFPAY ==
[~2022-01-13] MED LIST changes: +HOLD METFORMIN - RECEIVED CONTRAST 20 ML VIAL IV SCH; -LACTATED RINGERS 1,000 ML IV PRN; -ceFAZolin 2 GM IV Premixed 50 ML IV ONE
[2022-01-13] MEDS: IOHEXOL 350 MG/ML 100 ML (OMNIPAQUE 350) VIAL IV ONE (11:32)
[2022-01-13] MEDS: CATHETER FLUSH 10 ML SYR IV PRN (11:32)
[2022-01-13] MEDS: NS 100 ML (IVPB) BAG IV ONE (11:32)
--- NOTE | 2022-01-13 12:39 | Diagnostic Imaging Report ---
EXAMINATION: CT chest, abdomen and pelvis with intravenous contrast. TECHNIQUE: Multiple contiguous axial images were obtained through the chest, abdomen and pelvis after the uneventful administration of intravenous contrast. All CT scans use one or more of the following dose optimizing techniques: automated exposure control, MA and/or KvP adjustment based on patient size and exam type or iterative reconstruction. HISTORY: Colorectal cancer follow-up COMPARISON: 12/10/2020 FINDINGS: Thyroid: The visualized thyroid gland is normal. Mediastinum: Heart size is normal without significant pericardial effusion. The aorta is normal in caliber. No suspicious lymphadenopathy. Lungs and airways: The lungs are clear without consolidation, pleural effusion, or pneumothorax. No suspicious pulmonary nodule. The airways are normal. Solid organs: The liver is normal without focal lesion. The gallbladder is normal. There is no biliary ductal dilation. Pancreas is normal. Spleen is normal. Adrenal glands are normal. The kidneys are normal without hydronephrosis. Bowel: There is small hiatal hernia. No bowel obstruction. Surgical changes of the distal colon. Appendix is normal. Peritoneum: There is no intraperitoneal free fluid or free air. No suspicious lymphadenopathy. Vasculature: Normal without aneurysm. Musculoskeletal: No suspicious osseous lesion or compression fracture. There is a ventral abdominal wall hernia which contains fat and a few loops of bowel without obstruction. Pelvis: The prostate gland is normal. The urinary bladder is normal. IMPRESSION: 1. No findings of residual, recurrent, or metastatic disease within the abdomen. 2. Ventral abdominal wall hernia containing loops of bowel without obstruction. 3. No other acute abnormality in the abdomen or pelvis. Dictated by: Dictated on workstation # [id number]
== END ==
LOC: RAD 11:45
PROVIDERS: ATTEND Internal Medicine Hematology & Oncology
DX: Z51.11 Encounter for antineoplastic chemotherapy (principal); C19 Malignant neoplasm of rectosigmoid junction; K43.9 Ventral hernia without obstruction or gangrene
CPT/HCPCS: 71260; 74177

== ENCOUNTER 2023-02-02 10:42 | Emergency (ER) | payer SELFPAY ==
[~2023-02-02 10:42] MED LIST changes: -HOLD METFORMIN - RECEIVED CONTRAST 20 ML VIAL IV SCH
--- NOTE | 2023-02-02 11:18 | ED Abdominal Pain ---
General Chief Complaint: Abdominal/GI Problems Stated Complaint: BLOODY STOOL LAST NIGHT, ABD PAIN OVER COUPLE WEEK Nursing Triage Note: PT AMB TO RM 9 PT STATES HAS HAD SOME BLOODY STOOLS, DIARRHEA, AND ABD PAIN 1/10 FOR APPROX 2 WEEKS. PT HAS HX OF COLORECTAL CA AND WAS TREATED W CHEMO AND RADIATION LAST ON IN 2020. PT STATES SOMETIMES PAIN GOES UP TO 10 W CRAMPING Source of Information: Patient, Old Records Exam Limitations: No Limitations History of Present Illness Date Seen by Provider: Feb 02, 2023 Time Seen by Provider: 10:48 Allergies and Home Medications Allergies Coded Allergies: No Known Drug Allergies (Unverified , 08/03/21) Past Fsgrpnk-Deyhpl-Tnbxig Hx Patient Social History Tobacco Use?: No Substance use?: No Alcohol Use?: Yes Alcohol Frequency: Rarely Immunizations Up To Date Tetanus Booster (TDap): Unknown First/Initial COVID19 Vaccinat: NO Second COVID19 Vaccination Semaj: NO Third COVID19 Vaccination Date: NO Seasonal Allergies Seasonal Allergies: No Past Medical History Surgery/Hospitalization HX: mi, rectal cancer Surgeries: Yes (RECTUM LESION REMOVAL, REMOVED SOME SIGMOID COLON) Respiratory: No Currently Using CPAP: No Currently Using BIPAP: No Cardiac: No Neurological: No Reproductive Disorders: No Genitourinary: No Gastrointestinal: Yes Gastroesophageal Reflux Musculoskeletal: No Endocrine: No HEENT: No Cancer: Yes Colon Did You Recieve Any Treatments: Yes What Type of Treatment Did You: Chemotherapy, Radiation, Surgical Intervention Psychosocial: No Integumentary: No Blood Disorders: No Family Medical History No Pertinent Family Hx Physical Exam Vital Signs Vital Signs - First Documented 02/02/23 10:51 Temp 36.2 Pulse 78 Resp 18 B/P (MAP) 145/101 (116) Pulse Ox 96 Capillary Refill : Less Than 3 Seconds Height/Weight/BMI Height: 5'9.00" Weight: 250lbs. oz. 113.495396kv; BMI Method:Stated Progress/Results/Core Measures Results/Orders Lab Results Laboratory Tests Test 02/02/23 11:00 02/02/23 11:20 Range/Units White Blood Count 7.7 4.3-11.0 10^3/uL Red Blood Count 4.78 4.30-5.52 10^6/uL Hemoglobin 14.6 13.3-17.7 g/dL Hematocrit 44 40-54 % Mean Corpuscular Volume 91 80-99 fL Mean Corpuscular Hemoglobin 31 25-34 pg Mean Corpuscular Hemoglobin Concent 34 32-36 g/dL Red Cell Distribution Width 13.5 10.0-14.5 % Platelet Count 243 130-400 10^3/uL Mean Platelet Volume 10.0 9.0-12.2 fL Immature Granulocyte % (Auto) 1 % Neutrophils (%) (Auto) 62 42-75 % Lymphocytes (%) (Auto) 28 12-44 % Monocytes (%) (Auto) 7 0-12 % Eosinophils (%) (Auto) 3 0-10 % Basophils (%) (Auto) 0 0-10 % Neutrophils # (Auto) 4.7 1.8-7.8 10^3/uL Lymphocytes # (Auto) 2.1 1.0-4.0 10^3/uL Monocytes # (Auto) 0.5 0.0-1.0 10^3/uL Eosinophils # (Auto) 0.2 0.0-0.3 10^3/uL Basophils # (Auto) 0.0 0.0-0.1 10^3/uL Immature Granulocyte # (Auto) 0.0 0.0-0.1 10^3/uL Prothrombin Time 14.9 H 12.2-14.7 SEC INR Comment 1.2 0.8-1.4 Activated Partial Thromboplast Time 28 24-35 SEC Sodium Level 137 135-145 MMOL/L Potassium Level 4.0 3.6-5.0 MMOL/L Chloride Level 103 98-107 MMOL/L Carbon Dioxide Level 24 21-32 MMOL/L Anion Gap 10 5-14 MMOL/L Blood Urea Nitrogen 11 7-18 MG/DL Creatinine 0.72 0.60-1.30 MG/DL Estimat Glomerular Filtration Rate 107 BUN/Creatinine Ratio 15 Glucose Level 214 H 70-105 MG/DL Calcium Level 9.2 8.5-10.1 MG/DL Corrected Calcium 9.1 8.5-10.1 MG/DL Total Bilirubin 1.3 H 0.1-1.0 MG/DL Aspartate Amino Transf (AST/SGOT) 39 H 5-34 U/L Alanine Aminotransferase (ALT/SGPT) 50 0-55 U/L Alkaline Phosphatase 91 40-136 U/L C-Reactive Protein High Sensitivity 3.78 H 0.00-0.50 MG/DL Total Protein 7.2 6.4-8.2 GM/DL Albumin 4.1 3.2-4.5 GM/DL Lipase 95 H 8-78 U/L Urine Color YELLOW Urine Clarity CLEAR Urine pH 6.5 5-9 Urine Specific Hooper 1.015 L 1.016-1.022 Urine Protein NEGATIVE NEGATIVE Urine Glucose (UA) 2+ H NEGATIVE Urine Ketones 1+ H NEGATIVE Urine Nitrite NEGATIVE NEGATIVE Urine Bilirubin NEGATIVE NEGATIVE Urine Urobilinogen 0.2 < = 1.0 MG/DL Urine Leukocyte Esterase NEGATIVE NEGATIVE Urine RBC (Auto) NEGATIVE NEGATIVE Urine RBC NONE /HPF Urine WBC NONE /HPF Urine Squamous Epithelial Cells NONE /HPF Urine Crystals NONE /LPF Urine Bacteria NEGATIVE /HPF Urine Casts NONE /LPF Urine Mucus NEGATIVE /LPF Urine Culture Indicated NO My Orders Orders - REGINA CHAMBERS MD Cbc With Automated Diff (02/02/23 10:47) Comprehensive Metabolic Panel (02/02/23 10:47) Ed Iv/Invasive Line Start (02/02/23 10:47) Lipase (02/02/23 10:59) Protime With Inr (02/02/23 10:59) Partial Thromboplastin Time (02/02/23 10:59) Ua Culture If Indicated (02/02/23 10:59) Hs C Reactive Protein (02/02/23 10:59) Ct Abdomen/Pelvis W (02/02/23 12:16) Iohexol Injection (Omnipaque 350 Mg/Ml 1 (02/02/23 12:30) Received Contrast (Hold Metformin- Contr (02/02/23 12:30) Ns (Ivpb) 100 Ml (Sodium Chloride 0.9% 1 (02/02/23 12:30) Fecal Occult Bedside (02/02/23 13:33) Medications Given in ED Current Medications Medications Dose Ordered Sig/Zhanna Route Start Time Stop Time Status Last Admin Dose Admin Iohexol 100 ml ONCE ONCE IV 02/02/23 12:30 02/02/23 12:31 DC 02/02/23 12:42 100 ML Sodium Chloride 100 ml ONCE ONCE IV 02/02/23 12:30 02/02/23 12:31 DC 02/02/23 12:42 80 ML Vital Signs/I&O 02/02/23 10:51 Temp 36.2 Pulse 78 Resp 18 B/P (MAP) 145/101 (116) Pulse Ox 96 Blood Pressure Mean: 116 Departure Impression Primary Impression: Lower abdominal pain Additional Impressions: Hematochezia History of colorectal cancer Hyperglycemia Disposition: 01 HOME, SELF-CARE Condition: Stable Departure-Patient Inst. Decision time for Depature: 13:35 Referrals: CHADWICK CHICAS DO (PCP/Family) Primary Care Physician Patient Instructions: Bloody Stools, Adult ED, High Blood Sugar, Adult ED Add. Discharge Instructions: The exact cause of the blood in your stools is uncertain at this time. Because of your history of colorectal cancer, you should pursue repeat colonoscopy with Dr. Villalta. Please call his office as soon as possible to make arrangements. Observe a clear liquid diet for the next 24 hours. Then gradually advance your diet with small quantities of bland food as tolerated. Your blood sugar was 214 on your blood work in the emergency room. This is solomon ggestive of diabetes. Please follow-up with Dr. Chicas as soon as possible for diabetic screening. In the meantime, eat a diet low in sugars and carbohydrates. Work toward weight loss and exercise as well. Also follow-up with Dr. Taylor's office to review your cancer surveillance in context of your current situation. Return to the emergency room if you have worsening symptoms despite following these instructions. All discharge instructions reviewed with patient and/or family. Voiced understanding. Copy Copies To 1: IESHA TAYLOR Copies To 2: CHADWICK CHICAS DO; OFELIA VILLALTA MD, JOSHUA T MD Feb 02, 2023 11:18
[2023-02-02 11:27] LABS: BASOPHILS % (AUTO) 0 % (0-10); EOSINOPHILS # (AUTO) 0.2 10^3/uL (0.0-0.3); EOSINOPHILS % (AUTO) 3 % (0-10); HEMATOCRIT 44 % (40-54); HEMOGLOBIN 14.6 g/dL (13.3-17.7); LYMPHOCYTES # (AUTO) 2.1 10^3/uL (1.0-4.0); LYMPHOCYTES % (AUTO) 28 % (12-44); MEAN CORPUSCULAR HEMOGLOBIN 31 pg (25-34); MEAN CORPUSCULAR HGB CONC 34 g/dL (32-36); MEAN CORPUSCULAR VOLUME 91 fL (80-99); MONOCYTES # (AUTO) 0.5 10^3/uL (0.0-1.0); MONOCYTES % (AUTO) 7 % (0-12); NEUTROPHILS # (AUTO) 4.7 10^3/uL (1.8-7.8); NEUTROPHILS % (AUTO) 62 % (42-75); PLATELET COUNT 243 10^3/uL (130-400); WHITE BLOOD COUNT 7.7 10^3/uL (4.3-11.0)
[2023-02-02 11:32] LABS: ALBUMIN 4.1 GM/DL (3.2-4.5)
[2023-02-02 11:34] LABS: CALCIUM 9.2 MG/DL (8.5-10.1)
[2023-02-02 11:35] LABS: TOTAL PROTEIN 7.2 GM/DL (6.4-8.2)
[2023-02-02 11:37] LABS: BILIRUBIN,TOTAL 1.3 MG/DL (0.1-1.0); INR 1.2 (0.8-1.4); PROTHROMBIN TIME PATIENT 14.9 SEC (12.2-14.7)
[2023-02-02 11:39] LABS: CREATININE SERUM 0.72 MG/DL (0.60-1.30)
[2023-02-02 11:53] LABS: CLARITY,URINE CLEAR; COLOR,URINE YELLOW
[2023-02-02 11:54] LABS: PH,URINE 6.5 (5-9)
[2023-02-02 12:04] LABS: BACTERIA,URINE NEGATIVE /HPF; BILIRUBIN,URINE NEGATIVE (NEGATIVE); GLUCOSE, URINE (UA) 2+ (NEGATIVE); KETONES,URINE 1+ (NEGATIVE); LEUKOCYTE ESTERASE ,URINE NEGATIVE (NEGATIVE); NITRITE,URINE NEGATIVE (NEGATIVE); PROTEIN,URINE NEGATIVE (NEGATIVE)
[2023-02-02] MEDS ORDERED: IOHEXOL 350 MG/ML 100 ML (OMNIPAQUE 350) VIAL IV ONE (12:30)
[2023-02-02] MEDS ORDERED: HOLD METFORMIN - RECEIVED CONTRAST 20 ML VIAL IV SCH (12:30)
[2023-02-02] MEDS ORDERED: NS 100 ML (IVPB) BAG IV ONE (12:30)
--- NOTE | 2023-02-02 13:06 | Diagnostic Imaging Report ---
PROCEDURE: CT abdomen and pelvis with contrast. TECHNIQUE: Multiple contiguous axial images were obtained through the abdomen and pelvis after administration of intravenous contrast. Auto Exposure Controls were utilized during the CT exam to meet ALARA standards for radiation dose reduction. All CT scans use one or more of the following dose optimizing techniques: automated exposure control, MA and/or KvP adjustment based on patient size and exam type or iterative reconstruction. INDICATION: Abdominal pain and bloody stools, history of colorectal cancer. Its compared with a CT chest, abdomen and pelvis 01/13/2022. Lung bases clear. There is a small hiatal hernia chronic. No liver mass. No bile duct dilatation. The adrenals, spleen and pancreas negative. Kidneys unobstructed. There is no abdominal pelvic mesenteric or retroperitoneal lymphadenopathy. There is a sutural opacity and anastomosis at the sigmoid without findings of its complication. Some mild chronic stranding of the lower pre-sacral and coccygeal fat on a presumed post-therapeutic basis stable. There is progressive ventral supraumbilical abdominal wall hernia with the hernial orifice now measuring 8.1 cm diameter through the defect is unobstructed bowel as well as nonedematous mesentery. No herniation of large bowel through the defect. There is a mildly elevated fecal load in the proximal and transverse colon without focal impaction or obstruction. Left colon is not well distended limiting its evaluation. No appreciable pericolonic stranding or edema. No visible mass. No pneumatosis. No free air. No focal inflammatory changes. The appendix visualized and normal. The urinary bladder unremarkable. Prostate and seminal vesicles unremarkable. There is no acute appearing bony pathology. IMPRESSION: 1. No findings of metastatic disease. 2. Progressive ventral supraumbilical abdominal wall hernia comprised of fat and unobstructed small bowel without features of its strangulation. 3. No findings to explain the complaint of gastrointestinal bleed. No inflammatory process, hemorrhage, contrast extravasation or acute findings identified. Dictated by: Dictated on workstation # [id number]
[2023-02-02 13:46] VITALS: BP 136/88
== END 2023-02-02 13:46 | disposition home or self-care (01) ==
LOC: EDUNIT# 10:42 → ER 10:46
DX: K92.1 Melena (principal); R73.9 Hyperglycemia, unspecified; Z85.048 Personal history of other malignant neoplasm of rectum, rectosigmoid junction, and anus; Z85.038 Personal history of other malignant neoplasm of large intestine; Z92.21 Personal history of antineoplastic chemotherapy; Z92.3 Personal history of irradiation; Z79.899 Other long term (current) drug therapy; Z90.49 Acquired absence of other specified parts of digestive tract; Z28.310 Unvaccinated for COVID-19
CPT/HCPCS: 36415; 74177; 80053; 81000; 82274; 83690; 85025; 85610; 85730; 86141

== ENCOUNTER 2023-02-16 09:50 | Outpatient (CLI) | payer SELFPAY ==
[~2023-02-16] VITALS: Ht 175.3 cm; Wt 126.3 kg
== END 2023-02-16 15:11 | disposition home or self-care (01) ==
LOC: PREOP 09:50
PROVIDERS: ATTEND Surgery
DX: Z01.818 Encounter for other preprocedural examination (principal)

== ENCOUNTER 2023-03-16 10:14 | Day surgery (SDC) | payer OTHER ==
[~2023-03-16] VITALS: Ht 175 cm; Wt 126.3 kg
[2023-03-16] MEDS ORDERED: LACTATED RINGERS 1,000 ML 1,000 ML IV STA (10:22)
[2023-03-16] MEDS ORDERED: LIDOCAINE JELLY 2% 6 ML SYRINGE MM PRN (10:30)
[2023-03-16] MEDS ORDERED: HURRICAINE EXT TUBE (BENZOCAINE) XX PRN (10:30)
[2023-03-16 10:38] VITALS: BP 141/90
[2023-03-16] MEDS ORDERED: MIDAZOLAM INJ 2 MG/2 ML VIAL ONE (10:48)
--- NOTE | 2023-03-16 11:01 | Progress Note-Pre Operative ---
Pre-Operative Progress Note Date of Available H&P: Mar 16, 2023 Date H&P Reviewed: Mar 16, 2023 Time H&P Reviewed: 10:00 History & Physical: No changes noted Pre-Operative Diagnosis: hx rectal cancer OFELIA CACERES MD Mar 16, 2023 11:01
--- NOTE | 2023-03-16 11:02 | Discharge Inst-Surgical ---
D/C Lap Instructions-NICKI Follow Up Activity as tolerated High Fiber Diet 25g or more per day Avoid Alcohol, Caffeine, Spicy [place] and Acid foods. Drink 64 fluid oz or more of fluids per day. Symptoms to Report: Fever over 101 degree F, Nausea/Vomiting If any problems/questions: Contact your physician or go to Emergency Room OFELIA CACERES MD Mar 16, 2023 11:02
[2023-03-16] MEDS ORDERED: LIDOCAINE JELLY 2% 6 ML SYRINGE ONE (11:04)
[2023-03-16] MEDS ORDERED: ONDANSETRON 4 MG ORAL DISSOLVE TABLET PO PRN (11:15)
[2023-03-16] MEDS ORDERED: ONDANSETRON INJECTION 4 MG/2 ML (SDV) IVP PRN (11:15)
[2023-03-16 11:45] VITALS: BP 120/61
[2023-03-16 11:50] VITALS: BP 125/66
[2023-03-16 11:55] VITALS: BP 117/75
--- NOTE | 2023-03-16 11:57 | Progress Note-Post Operative ---
Post-Operative Progess Note Surgeon (s)/Incident Response Lead (s) Surgeon OFELIA CACERES MD Incident Response Lead: none Pre-Operative Diagnosis hx rectal cancer Post-Operative Diagnosis chronic stage 2 ext and int hemorrhoids, mild radiation proctitis, normal colorectal anastomosis, small hepatic flex polyp(3mm) Procedure & Operative Findings Date of Procedure 03/16/23 Procedure Performed/Findings colonoscopy with bx. Anesthesia Type mac Estimated Blood Loss Estimated blood loss (mL): minimal Specimens/Packing Specimens Removed hepatic flex polyp OFELIA CACERES MD Mar 16, 2023 11:57
[2023-03-16 12:25] VITALS: BP 117/75
--- NOTE | 2023-03-16 14:36 | Anesthesia-General Post-Op ---
MAC Patient Condition Mental Status/LOC: Same as Preop Cardiovascular: Satisfactory Nausea/Vomiting: Absent Respiratory: Satisfactory Pain: Controlled Complications: Absent Post Op Complications Complications None Follow Up Care/Instructions Patient Instructions None needed. Anesthesiology Discharge Order Discharge Order Patient is doing well, no complaints, stable vital signs, no apparent adverse anesthesia problems. No complications reported per nursing. ZACHERY BRADY CRNA Mar 16, 2023 14:36
--- NOTE | 2023-03-16 18:55 | OPERATIVE REPORT ---
DATE OF SERVICE: 03/16/2023 ATTENDING PRIMARY CARE PHYSICIAN: Matt Mcqueen DO PREOPERATIVE DIAGNOSES: History of rectal cancer, status post chemoradiation and what sounds to be a low anterior colorectal resection. He reports that he did have an episode of rectal bleeding, which was self-limiting and stopped on its own. His surgery was done in [place] in 2020. POSTOPERATIVE DIAGNOSES: Chronic stage II, external and internal hemorrhoids, radiation proctitis, small polyp of the hepatic flexure. PROCEDURE: Colonoscopy with polypectomy with hot biopsy forceps. SURGEON: Ofelia Caceres M.D. ANESTHESIA: Monitored anesthesia care. ESTIMATED BLOOD LOSS: Minimal. FINDINGS: Chronic stage II, external and internal hemorrhoids, radiation proctitis, small polyp of the hepatic flexure. DISPOSITION: The patient tolerated the procedure well. DESCRIPTION OF PROCEDURE: The patient was brought to the endoscopy suite and laid in the left lateral decubitus position. After adequate IV pain and sedative medications and monitored anesthesia care, a digital rectal examination was performed. Chronic stage II, external and internal hemorrhoids were identified, which were not actively edematous nor inflamed and no bleeding. Normal sphincter tone was felt and there were no palpable masses. Prostate gland was palpable and appeared normal. The endoscope was then intubated into the anus and the rectum, gently insufflated. There were some mild mucosal inflammatory changes of the rectum, likely consistent with a radiation proctitis. Biopsies were taken with forceps with visualization of good hemostasis. The endoscope was then advanced to the colorectal anastomosis, which appeared to be end-to-side, which appeared to be completely intact with no recurrent tumors identified and widely patent. The endoscope was advanced through the remainder of the descending and transverse colon. At the level of the hepatic flexure, a small polyp approximately 3 mm in size was identified and this was biopsied and destroyed with forceps and electrocautery with visualization of good hemostasis. The endoscope was then advanced through the remainder of the ascending colon to the cecum, which were normal. The endoscope was then slowly withdrawn while taking a second look and suctioning of residual air with no additional findings. The patient tolerated the procedure well. We will recommend the necessary lifestyle and dietary accommodation, which we will recommend a high-fiber diet with addition of a fiber supplement, which are equal or exceed 30 grams daily as well as significant amounts of water to promote soft stools on a daily basis. His radiation proctitis appears very mild and self-limited, and at this time, we will not medically treat him; however, if this were to worsen, we would proceed with a trial of oral steroids versus sucralfate enemas. This would be the first line therapy for active radiation proctitis. Job ID: [id number] DocumentID: [id number] Dictated Date: 03/16/2023 11:52:24 Psychological Examiner Date: 03/16/2023 18:53:00 Dictated By: OFELIA CACERES MD
== END 2023-03-16 12:25 | disposition home or self-care (01) ==
LOC: ENDO 10:14
PROVIDERS: ATTEND Surgery
DX: D12.3 Benign neoplasm of transverse colon (principal); K62.5 Hemorrhage of anus and rectum; K64.1 Second degree hemorrhoids; K64.4 Residual hemorrhoidal skin tags; K63.89 Other specified diseases of intestine; K62.7 Radiation proctitis; Z98.0 Intestinal bypass and anastomosis status; Z85.038 Personal history of other malignant neoplasm of large intestine; Z92.21 Personal history of antineoplastic chemotherapy
CPT/HCPCS: 88305

== ENCOUNTER → 2023-03-31 | Outpatient (CLI) | payer SELFPAY ==
[~2023-03-31] MED LIST changes: +IOHEXOL 350 MG/ML 100 ML (OMNIPAQUE 350) VIAL IV ONE; +NS 100 ML (IVPB) BAG IV ONE
--- NOTE | 2023-03-31 10:20 | Diagnostic Imaging Report ---
EXAMINATION: CT chest, abdomen and pelvis with intravenous contrast. TECHNIQUE: Multiple contiguous axial images were obtained through the chest, abdomen and pelvis after the uneventful administration of intravenous contrast. All CT scans use one or more of the following dose optimizing techniques: automated exposure control, MA and/or KvP adjustment based on patient size and exam type or iterative reconstruction. HISTORY: Rectal cancer COMPARISON: 02/02/2023 FINDINGS: There is no edema or pneumonia. No pleural effusion. No pneumothorax. No suspicious nodules. There is no axillary or supraclavicular lymphadenopathy. There is no mediastinal lymphadenopathy. Heart size is normal. There are mild coronary artery calcifications. No pericardial effusion. Aorta is normal in caliber. The liver is normal without focal lesion. There is no biliary ductal dilation. Gallbladder is normal. Pancreas is normal. Small cyst or hemangioma in the spleen is unchanged. Adrenal glands are normal. The kidneys are normal. There is no hydronephrosis. Urinary bladder is normal. Bowel is normal in caliber without obstruction or inflammation. There is a bowel containing ventral abdominal hernia. There has been a rectosigmoid resection. No free fluid or air. No abdominal or pelvic lymphadenopathy. Aorta is normal in caliber without aneurysm. There are no suspicious osseus lesions. IMPRESSION: 1. No metastatic disease in the chest, abdomen or pelvis. Dictated by: Dictated on workstation # [id number]
== END ==
LOC: RAD 09:18
PROVIDERS: ATTEND Nurse Practitioner
DX: C20 Malignant neoplasm of rectum (principal)
CPT/HCPCS: 71260; 74177

== ENCOUNTER → 2023-04-13 | Outpatient (CLI) | payer OTHER ==
[~2023-04-13] MED LIST changes: -IOHEXOL 350 MG/ML 100 ML (OMNIPAQUE 350) VIAL IV ONE; -NS 100 ML (IVPB) BAG IV ONE
--- NOTE | 2023-04-13 11:52 | Diagnostic Imaging Report ---
INDICATION: Right breast lump. COMPARISON: No prior mammograms are available for comparison. TECHNIQUE: Unilateral right 2D and 3D diagnostic mammography was performed with CAD. FINDINGS: There is some mild density in the retroareolar right breast, likely representing gynecomastia. No discrete mass is identified. There are scattered benign calcifications. The right axilla is unremarkable. IMPRESSION: Findings are most suggestive of gynecomastia in the retroareolar right breast. Even so, directed sonographic interrogation of this area is recommended and will be performed today. ACR BI-RADS Category 0: Incomplete. (Needs additional imaging evaluation). Result letter will be mailed to the patient. Note: At least 10% of breast cancer is not imaged by mammography. Dictated by: Dictated on workstation # [id number]
--- NOTE | 2023-04-13 15:22 | Diagnostic Imaging Report ---
INDICATION: Right breast lump. Correlation is made with diagnostic mammogram earlier same day. Sonographic interrogation retroareolar right breast was performed. No discrete mass is identified. A ill-defined hypoechogenicity retroareolar right breast is noted consistent with gynecomastia. IMPRESSION: Features most consistent with gynecomastia. No discrete breast mass is identified. ACR BI-RADS Category 2: Benign findings. Result letter will be mailed to the patient. Note: At least 10% of breast cancer is not imaged by mammography. BI-RADS Category 2 Dictated by: Dictated on workstation # [id number]
== END ==
LOC: RAD 10:40
PROVIDERS: ATTEND Internal Medicine Hematology & Oncology
DX: C20 Malignant neoplasm of rectum (principal); N63.10 Unspecified lump in the right breast, unspecified quadrant; R73.09 Other abnormal glucose; R74.8 Abnormal levels of other serum enzymes
CPT/HCPCS: 76642; 77065; G0279